=== PATIENT | male | born 1965 | race Caucasian/White ===

== ENCOUNTER 2020-09-28 08:19 | Emergency (ER) | payer BC, SELFPAY ==
[2020-09-28 08:23] VITALS: BP 155/88; PULSE 87; RESP 20; TEMP 36.6; O2SAT 97; BMI 35.2
--- NOTE | 2020-09-28 08:37 | XR_ITS ---
EXAMINATION: XR CHEST CLINICAL INFORMATION: Shortness of breath COMPARISON: None TECHNIQUE: Frontal view of the chest was obtained. FINDINGS: The cardiac and mediastinal contours are normal. The lung volumes are low. There are bilateral patchy infiltrates. Covid infection should be excluded. There is no pleural effusion or pneumothorax. There are degenerative changes of the spine. XR/XR chest 1V IMPRESSION: Low lung volumes and bilateral patchy infiltrates. Atypical pneumonia/Covid infection should be considered.
--- NOTE | 2020-09-28 08:39 | ECG_ITS ---
Test Reason : SSOB Blood Pressure : / mmHG Vent. Rate : 081 BPM Atrial Rate : 081 BPM P-R Int : 150 ms QRS Dur : 088 ms QT Int : 398 ms P-R-T Axes : 035 -15 015 degrees QTc Int : 462 ms Normal sinus rhythm Normal ECG When compared with ECG of 25-JUN-2017 10:30, Nonspecific T wave abnormality, improved in Inferior leads QT has lengthened Referred By: Dwight Boyd Electronically Signed By:NATALIA ELLISON MD
--- NOTE | 2020-09-28 08:40 | PC.NURSE ---
pt ambulated with the pulse dropped from 97% to 94%b on room air and hr increased from 88 to 108. work of breathing increased, respirations increased as well from 18-22. pt moved from castaneda into bed 3
[2020-09-28 08:49] VITALS: O2SAT 95
[2020-09-28 08:53] LABS: MANUAL DIFF FLAG NO
[2020-09-28 08:55] LABS: Basophils Percent Auto 0.3 % (0-2); Eosinophils Percent Auto 0.2 % (0-4); Hematocrit 47.1 % (42-52); Hemoglobin 16.6 g/dl (14.0-18.0); Imm Gran Abs Auto 0.02 X10*3/uL (0.00-0.03); Imm Gran Pct Auto 0.3 % (0.0-0.4); Lymphocytes Absolute Auto 1.8 X10*3/uL (1.2-4.9); Lymphocytes Percent Auto 29.4 % (20-40); Mean Corpuscular HGB Conc 35.2 g/dl (31.0-36.0); Mean Corpuscular Hemoglobin 31.6 pg (27.0-33.0); Mean Corpuscular Volume 89.7 fL (80-98); Mean Platelet Volume 10.1 fL (9.4-12.4); Monocytes Absolute Auto 0.7 X10*3/uL (0.1-1.2); Monocytes Percent Auto 11.9 % (2-11); Neutrophils Absolute Auto 3.5 X10*3/uL (2.0-8.3); Neutrophils Percent Auto 57.9 % (45-73); Platelet Count 213 X10*3/uL (160-400); Red Blood Count 5.25 X10*6/uL (4.60-5.80); Red Cell Distribution Width 12.4 % (11.0-16.0)
[2020-09-28 09:01] LABS: INTERNATIONAL NORM RATIO 1.2 (0.9-1.1); Prothrombin Time 13.9 SEC (10.8-13.0)
[2020-09-28 09:04] LABS: D Dimer 405 NG/ML
[2020-09-28 09:21] LABS: Alanine Aminotransferase 38 U/L (0-40); Albumin Level 4.2 g/dL (3.5-5.0); Alkaline Phosphatase 93 U/L (39-117); Anion Gap 15 (12-20); Aspartate Amino Transferase 37 U/L (5-37); Bilirubin Total 0.9 mg/dL (0.0-1.0); Blood Urea Nitrogen 10 mg/dL (9-16); Calcium 8.5 mg/dL (8.4-10.2); Carbon Dioxide 26 mmol/L (22-29); Chloride 101 mmol/L (96-108); Creatinine Clr Calc Pharmacy 117.5; Estimated Glomerular Filt Rate > 60; Glucose Random 118 mg/dL (60-115); Potassium 4.1 mmol/l (3.3-5.1); Sodium 138 mmol/L (135-145); Total Protein 6.8 g/dL (6.5-8.0)
[2020-09-28 09:28] LABS: Troponin-I High Sensitivity < 3.5 ng/L (<3.5-35.0)
--- NOTE | 2020-09-28 10:08 | CT_ITS ---
EXAMINATION: CT ANGIOGRAM OF THE CHEST WITH AND WITHOUT CONTRAST (CT PULMONARY ANGIOGRAM FOR PE) CLINICAL INFORMATION: Reason for Exam SOB/ elevated d dimer/ + COVID COMPARISON: None TECHNIQUE: Prior to contrast administration, noncontrast localization images were obtained. Subsequently, multidetector volumetric imaging was performed from the thoracic inlet to below the diaphragms following the administration of 65 mL Omnipaque 350 intravenous contrast. No contrast reaction reported Sagittal, coronal, and MIP oblique sagittal reformatted images were obtained on the CT workstation, uploaded to PACS, and reviewed. This CT examination was performed using dose optimization techniques as appropriate, variously including the following: *Automated exposure control *Adjustment of mA and/or kV according to patient size (this includes techniques or standardized protocols for targeted exams where dose is matched to indication/reason for exam; i.e. extremities or head) *Use of iterative reconstruction technique Total exam dose-length product 470 mGy-cm FINDINGS: QUALITY OF STUDY/CONTRAST BOLUS: Satisfactory. PULMONARY ARTERIES: No acute pulmonary embolus demonstrated. The main pulmonary artery is normal caliber. THORACIC AORTA: There is no evidence of a thoracic aortic dissection or aneurysm. No cardiac mass or thrombus demonstrated. No pericardial fluid. The coronary arteries are not well evaluated. LUNG: No abnormality of the trachea or mainstem bronchi. There are innumerable small groundglass and rounded opacities throughout both lungs. No cavity formation. PLEURA: There is no pleural fluid. There is no pneumothorax. MEDIASTINUM: There are scattered nonenlarged mediastinal lymph nodes. No suspicious abnormality of the upper or mid esophagus. Suspect a tiny sliding-type hiatal hernia. Large amount of fat deposited within the mediastinum. No evidence of septal bowing or right heart strain. CHEST WALL/AXILLA: No axillary or internal mammary lymphadenopathy. OSSEOUS STRUCTURES: No acute or suspicious osseous abnormality. UPPER ABDOMEN: No suspicious abnormality demonstrated. No reflux of contrast into the hepatic veins to suggest elevated right heart pressures. CT/CT angio chest PE protocol IMPRESSION: No acute pulmonary embolus. Numerous scattered bilateral groundglass infiltrates. This could reflect Covid pneumonia but is not entirely specific. VTE: negative
[2020-09-28 11:41] VITALS: BP 122/77; PULSE 77; RESP 20; O2SAT 96
--- NOTE | 2020-09-28 11:43 | PC.NURSE ---
pt back from ct, resting comfortably vs stable at this time, ns on the monitor, denies pain
[2020-09-28] MEDS: iohexoL 350 MG/ML 100 ML INFUS..BTL IV (12:03)
--- NOTE | 2020-09-28 13:02 | ED_ITS ---
HPI - URI/Sore Throat General Chief Complaint: Upper Respiratory Symptoms Stated Complaint: SOB Time Seen by Provider: 09/28/20 08:33 Source: patient Mode of arrival: ambulatory Limitations: no limitations History of Present Illness HPI Narrative: This is a 54-year-old male who presents ambulatory via triage who denies significant past medical history who presents with complaint of increased cough and associated shortness of breath ongoing for past several days states he was tested positive for COVID-19 about 1 week ago initially felt worse then he got better and now having cough and some shortness of breath with chills. He denies any chest pain at rest only with cough. Denies any lower extremity swelling. Denies any fever or GI symptoms. MD elicited complaint: cough and nasal congestion Onset (ago): day(s) Consistency: intermittent Severity: moderate Description of mucous: clear Able to tolerate fluids by mouth: Yes Exacerbating factors: other (Cough) Relieving factors: rest Context: sick contacts (Multiple members of his family including his and his brother tested positive COVID) Associated symptoms: rhinorrhea Treatments prior to arrival: none Related Data Previous Rx's Medication Instructions Recorded albuterol sulfate 1 inh INHALATION Q4-6H PRN #1 ea 09/28/20 azithromycin [Zithromax Z-Gabriel] 250 mg PO DAILY 5 Days #6 tab 09/28/20 prednisone 40 mg PO DAILY 5 Days #10 tab 09/28/20 Allergies Allergy/AdvReac Type Severity Reaction Status Date / Time No Known Allergies Allergy Verified 09/18/20 10:05 [No Known Allergies*] Review of Systems Review of Systems: Constitutional: No Weight loss, No Fever, + Chills, No Night Sweats, No Fatigue, No Malaise ENT/Mouth: No Hearing loss, No Ear Pain, No Nasal Congestion, No Sinus Pain, No Hoarseness, No sore throat, No Rhinorrhea, No Swallowing Difficulty Eyes: No Eye Pain, No Swelling, No Redness, No Foreign Body, No Discharge, No Vision Changes Cardiovascular: no Chest Pain, + SOB, No Dyspnea on Exertion, No Orthopnea, No Edema, No Palpitations Respiratory: + Cough, No Sputum, No Wheezing, No Dyspnea Gastrointestinal: No Nausea, No Vomiting, No Diarrhea, No Constipation, No abdominal Pain, No Hematochezia, No Melena Genitourinary: Flank Pain Musculoskeletal: No joint pain, + Myalgias, No Joint Swelling Skin: No Skin Lesions, No rash Neuro: No Weakness, No Numbness, No Paresthesias, No Loss of Consciousness, No Dizziness, No Headache Psych: No Social Issues Heme/Lymph: No Bruising, No Bleeding,No Lymphadenopathy Endocrine: No Polyuria, No Polydipsia, No Temperature Intolerance Yes all other systems are reviewed and are negative [facility] Past Medical History Surgical History History of total right knee replacement History of vasectomy Status post excision of lipoma Status post LASIK surgery Family History Family History Father Lung cancer Smoker Mother Diabetes Brother In good health Sister In good health Son In good health Brother Heart problem Brother Cancer Social History Social History Alcohol intake: current Alcohol intake frequency: a few times a month Smoking Status: Never smoker Use of substances other than those prescribed or required for medical reasons: No Advance Directives: No Advance Directives Information Provided: No Physical Exam Vital Signs: Vital Signs: Last Vital Signs Temp 97.8 F 09/28/20 08:23 Pulse 77 09/28/20 11:41 Resp 20 09/28/20 11:41 BP 122/77 09/28/20 11:41 Pulse Ox 96 09/28/20 11:41 Body Mass Index 35.2 Reviewed Const: General: cooperative and healthy appearing; No acute distress or intoxicated appearing Nutritional Appearance: average body habitus Orientation/consciousness: patient oriented x3 HENMT: Head: Yes normal to inspection Ears: hearing grossly normal bilaterally Eyes: General: appearance normal, both eyes and all related structures Visual Aaron: normal visual aaron by confrontation Neck: Neck: Yes normal visual inspection, No positive Brudzinski's sign, No positive Kernig's sign and No tender Thyroid: Thyroid normal Chest: Chest palpation & inspection: normal inspection of the chest Resp: Other: Mild dry bronchial cough Effort & Inspection: normal respiratory effort Auscultation: clear to auscultation bilaterally Cardio: Jugular venous distension: no JVD Rate: regular rate Rhythm: regular rhythm Heart sounds: S1 normal heart sound present and S2 normal heart sound present GI: Inspection: Yes normal to inspection Percussion: Yes normal to percussion Auscultation: normal bowel sounds : General: Yes no CVA tenderness Back/Spine/Pelvis: Back: no CVA tenderness Skin: General skin exam: no rashes or lesions noted Neuro: General: patient oriented x3 Extrem: General: Yes normal to inspection Course Course Course Narrative: Interview 54-year-old male who denies significant past medical history presenting with complaint of cough with associated shortness of breath in the setting of a positive COVID test 1 week ago and symptoms wax wean since. Upon arrival he is slightly tachypneic otherwise not tachycardic, pulse ox 98% on room air and heart rate 87. Will check labs including EKG chest x-ray and a D-dimer test. He is hemodynamically stable at this time. Does not requiring supplemental oxygen. He did do exertional ambulatory test his oxygen stayed at 98% on room air and not tachycardic. Reevaluation(s) Reevaluation #1: Labs show slightly elevated D-dimer otherwise unremarkable labs. Troponin negative. He has remained stable. Given positive COVID test and his elevated D-dimer possibility does exist of pulmonary embolism will get CT of the chest rule out PE. Reevaluation #2: CT of the chest shows No acute pulmonary embolus. Numerous scattered bilateral groundglass infiltrates. This could reflect Covid pneumonia but is not entirely specific. He remained stable. Will discharge short course prednisone, inhaler and supportive care. Clear return follow-up instructions provided. MDM - URI/Sore Throat Medical Records Attestation: I reviewed the patient's medical records. Lab Data Attestation: I reviewed the patient's lab results. Result diagrams: 09/28/20 08:44 09/28/20 08:44 Labs: Lab Results 09/28/20 09/28/20 09/28/20 Range/Units 08:44 08:44 08:44 WBC 6.0 (4.8-10.8) X10*3/uL RBC 5.25 (4.60-5.80) X10*6/uL Hgb 16.6 (14.0-18.0) g/dl Hct 47.1 (42-52) % MCV 89.7 (80-98) fL MCH 31.6 (27.0-33.0) pg MCHC 35.2 (31.0-36.0) g/dl RDW 12.4 (11.0-16.0) % Plt Count 213 (160-400) X10*3/uL MPV 10.1 (9.4-12.4) fL Immature Gran % (Auto) 0.3 (0.0-0.4) % Neut % (Auto) 57.9 (45-73) % Lymph % (Auto) 29.4 (20-40) % [place] % (Auto) 11.9 H (2-11) % Eos % (Auto) 0.2 (0-4) % Baso % (Auto) 0.3 (0-2) % Lymph # (Auto) 1.8 (1.2-4.9) X10*3/uL [place] # (Auto) 0.7 (0.1-1.2) X10*3/uL Eos # (Auto) 0.0 (0.0-0.4) X10*3/uL Baso # (Auto) 0.0 (0.0-0.2) X10*3/uL Abs Immat Gran (auto) 0.02 (0.00-0.03) X10*3/uL Absolute Neuts (auto) 3.5 (2.0-8.3) X10*3/uL Absolute Nucleated RBC 0.000 (0.0-0.012) X10*3/uL Nucleated RBC % (auto) 0.0 (0.0-0.2) /100WBC PT (10.8-13.0) SEC INR (0.9-1.1) APTT (24.1-38.0) SEC D-Dimer NG/ML Sodium 138 (135-145) mmol/L Potassium 4.1 (3.3-5.1) mmol/l Chloride 101 (96-108) mmol/L Carbon Dioxide 26 (22-29) mmol/L Anion Gap 15 (12-20) BUN 10 (9-16) mg/dL Creatinine 0.93 (0.5-1.4) mg/dL Estim Creat Clear Calc 117.5 Estimated GFR > 60 Random Glucose 118 H (60-115) mg/dL Calcium 8.5 (8.4-10.2) mg/dL Total Bilirubin 0.9 (0.0-1.0) mg/dL AST 37 (5-37) U/L ALT 38 (0-40) U/L Alkaline Phosphatase 93 (39-117) U/L Troponin I High Sens < 3.5 (<3.5-35.0) ng/L Total Protein 6.8 (6.5-8.0) g/dL Albumin 4.2 (3.5-5.0) g/dL 09/28/20 Range/Units 08:44 WBC (4.8-10.8) X10*3/uL RBC (4.60-5.80) X10*6/uL Hgb (14.0-18.0) g/dl Hct (42-52) % MCV (80-98) fL MCH (27.0-33.0) pg MCHC (31.0-36.0) g/dl RDW (11.0-16.0) % Plt Count (160-400) X10*3/uL MPV (9.4-12.4) fL Immature Gran % (Auto) (0.0-0.4) % Neut % (Auto) (45-73) % Lymph % (Auto) (20-40) % [place] % (Auto) (2-11) % Eos % (Auto) (0-4) % Baso % (Auto) (0-2) % Lymph # (Auto) (1.2-4.9) X10*3/uL [place] # (Auto) (0.1-1.2) X10*3/uL Eos # (Auto) (0.0-0.4) X10*3/uL Baso # (Auto) (0.0-0.2) X10*3/uL Abs Immat Gran (auto) (0.00-0.03) X10*3/uL Absolute Neuts (auto) (2.0-8.3) X10*3/uL Absolute Nucleated RBC (0.0-0.012) X10*3/uL Nucleated RBC % (auto) (0.0-0.2) /100WBC PT 13.9 H (10.8-13.0) SEC INR 1.2 H (0.9-1.1) APTT 35.0 (24.1-38.0) SEC D-Dimer 405 NG/ML Sodium (135-145) mmol/L Potassium (3.3-5.1) mmol/l Chloride (96-108) mmol/L Carbon Dioxide (22-29) mmol/L Anion Gap (12-20) BUN (9-16) mg/dL Creatinine (0.5-1.4) mg/dL Estim Creat Clear Calc Estimated GFR Random Glucose (60-115) mg/dL Calcium (8.4-10.2) mg/dL Total Bilirubin (0.0-1.0) mg/dL AST (5-37) U/L ALT (0-40) U/L Alkaline Phosphatase (39-117) U/L Troponin I High Sens (<3.5-35.0) ng/L Total Protein (6.5-8.0) g/dL Albumin (3.5-5.0) g/dL Imaging Data Chest x-ray: Radiologist's impression: [address] [address] XRay Report Signed Patient: Jayesh Bruner MMR#: [id number] : 1965Acct:[id number] Age/Sex: 54 / MADM Date: 09/28/20 Loc: .ED Attending Dr: Ordering Physician: Dwight Boyd NP Date of Service: 09/28/20 Procedure(s): XR chest 1V Accession Number(s): [id number] cc: Dwight Boyd [employer]~ EXAMINATION: XR CHEST CLINICAL INFORMATION: Shortness of breath COMPARISON: None TECHNIQUE: Frontal view of the chest was obtained. FINDINGS: The cardiac and mediastinal contours are normal. The lung volumes are low. There are bilateral patchy infiltrates. Covid infection should be excluded. There is no pleural effusion or pneumothorax. There are degenerative changes of the spine. XR/XR chest 1V IMPRESSION: Low lung volumes and bilateral patchy infiltrates. Atypical pneumonia/Covid infection should be considered. Dictated By:NANNETTE JORDAN MD Signed By:<Electronically signed by NANNETTE JORDAN MD in [place]>09/28/2013 DD/ 0837 TD/TT: Job Coaching: [facility] [place] Chest CT PE protocol: Radiologist's impression: [address] [address] [address] Scan Report Signed Patient: Jayesh Bruner [facility]#: [id number] : 1965Acct:[id number] Age/Sex: 54 / MADM Date: 09/28/20 Loc: HO.ED Attending Dr: Ordering Physician: Dwight Boyd NP Date of Service: 09/28/20 Procedure(s): CT angio chest PE protocol Accession Number(s): [id number] cc: Dwight Boyd NP~ EXAMINATION: CT ANGIOGRAM OF THE CHEST WITH AND WITHOUT CONTRAST (CT PULMONARY ANGIOGRAM FOR PE) CLINICAL INFORMATION: Reason for Exam SOB/ elevated d dimer/ + COVID COMPARISON: None TECHNIQUE: Prior to contrast administration, noncontrast localization images were obtained. Subsequently, multidetector volumetric imaging was performed from the thoracic inlet to below the diaphragms following the administration of 65 mL Omnipaque 350 intravenous contrast. No contrast reaction reported Sagittal, coronal, and MIP oblique sagittal reformatted images were obtained on the CT workstation, uploaded to PACS, and reviewed. This CT examination was performed using dose optimization techniques as appropriate, variously including the following: *Automated exposure control *Adjustment of mA and/or kV according to patient size (this includes techniques or standardized protocols for targeted exams where dose is matched to indication/reason for exam; i.e. extremities or head) *Use of iterative reconstruction technique Total exam dose-length product 470 mGy-cm FINDINGS: QUALITY OF STUDY/CONTRAST BOLUS: Satisfactory. PULMONARY ARTERIES: No acute pulmonary embolus demonstrated. The main pulmonary artery is normal caliber. THORACIC AORTA: There is no evidence of a thoracic aortic dissection or aneurysm. No cardiac mass or thrombus demonstrated. No pericardial fluid. The coronary arteries are not well evaluated. LUNG: No abnormality of the trachea or mainstem bronchi. There are innumerable small groundglass and rounded opacities throughout both lungs. No cavity formation. PLEURA: There is no pleural fluid. There is no pneumothorax. MEDIASTINUM: There are scattered nonenlarged mediastinal lymph nodes. No suspicious abnormality of the upper or mid esophagus. Suspect a tiny sliding-type hiatal hernia. Large amount of fat deposited within the mediastinum. No evidence of septal bowing or right heart strain. CHEST WALL/AXILLA: No axillary or internal mammary lymphadenopathy. OSSEOUS STRUCTURES: No acute or suspicious osseous abnormality. UPPER ABDOMEN: No suspicious abnormality demonstrated. No reflux of contrast into the hepatic veins to suggest elevated right heart pressures. CT/CT angio chest PE protocol IMPRESSION: No acute pulmonary embolus. Numerous scattered bilateral groundglass infiltrates. This could reflect Covid pneumonia but is not entirely specific. VTE: negative Dictated By:VINNIE VÁZQUEZ MD Signed By:<Electronically signed by VINNIE VÁZQUEZ MD in [place]>09/28/20 1215 DD/ 1008 TD/TT: Job Coaching: JOHNNY ECG Data Interpretation: Normal sinus rhythm Normal ECG When compared with ECG of 25-JUN-2017 10:30, Nonspecific T wave abnormality, improved in Inferior leads QT has lengthened Discharge Plan Discharge Clinical Impression: COVID-19, Chest pain on breathing Patient Disposition: Home, Self-Care Instructions: Chest Pain (ED), COVID-19 (Coronavirus Disease 2019) (ED) Additional Instructions: Drink plenty of fluids Quarantine yourself for at least 2 weeks and at least 3 days symptom free Take medication prescribed Return if any concerns or worsening symptoms Otherwise doing phone visit with her primary care doctor for fall check in about 7 days Prescriptions: New azithromycin [Zithromax Z-Gabriel] 250 mg tablet 250 mg PO DAILY 5 Days Qty: 6 RF: 0 prednisone 20 mg tablet 40 mg PO DAILY 5 Days Qty: 10 RF: 0 albuterol sulfate 90 mcg/actuation aero powdr breath act w/sensor 1 inh inhalation Q4-6H PRN (Reason: shortness of breath or wheezing) Qty: 1 RF: 0 Referrals: Zheng Fernandez PA-C [Primary Care Provider] - 1 week (Phone visit) Discharge Date/Time: 09/28/20 14:14
== END 2020-09-28 14:14 | disposition home or self-care (01) ==
PROVIDERS: Nurse Practitioner Primary Care; Emergency Provider Emergency Medicine Emergency Medical Services; PCP Physician Assistant
DX: U07.1 COVID-19 (principal); R06.02 Shortness of breath; J34.89 Other specified disorders of nose and nasal sinuses
CPT/HCPCS: 36415; 71045; 71275; 80053; 84484; 85025; 85379; 85610; 85730; 93005; 99284; 99285; Q9967

== ENCOUNTER 2020-10-10 11:42 | Outpatient (REF) | payer BC, SELFPAY ==
--- NOTE | 2020-10-10 11:49 | XR_ITS ---
EXAMINATION: XR CHEST CLINICAL INFORMATION: Abnormal finding on lung-field COMPARISON: 09/28/2020 TECHNIQUE: 2 views of the chest were obtained. FINDINGS: The lungs are well expanded. There is no focal consolidation, edema, or effusion. No pneumothorax. The cardiomediastinal silhouette is within normal limits. No acute osseous abnormality. XR/XR chest 2V IMPRESSION: Clear lungs.
== END 2020-10-10 11:43 | disposition home or self-care (01) ==
LOC: HO.XRAY 11:42
PROVIDERS: PCP Physician Assistant; Visit Provider Physician Assistant
DX: R91.8 Other nonspecific abnormal finding of lung field (principal)
CPT/HCPCS: 71046

== ENCOUNTER 2021-03-18 10:34 | Outpatient (REF) | payer BC, SELFPAY ==
[2021-03-18 12:17] LABS: Estimated Average Glucose 108 mg/dL; Hemoglobin A1c % 5.4 %
[2021-03-18 12:19] LABS: Alanine Aminotransferase 22 U/L (0-40); Albumin Level 4.1 g/dL (3.5-5.0); Alkaline Phosphatase 85 U/L (39-117); Anion Gap 13 (12-20); Aspartate Amino Transferase 19 U/L (5-37); Bilirubin Total 0.9 mg/dL (0.0-1.0); Blood Urea Nitrogen 11 mg/dL (9-16); Calcium 9.3 mg/dL (8.4-10.2); Carbon Dioxide 23 mmol/L (22-29); Chloride 108 mmol/L (96-108); Cholesterol 213 mg/dL; Estimated Glomerular Filt Rate > 60; Glucose Fasting 102 mg/dL (60-99); HDL Cholesterol 41 mg/dL; LDL Cholesterol Calculated 131 mg/dl; Potassium 4.4 mmol/L (3.3-5.1); Sodium 140 mmol/L (135-145); Total Protein 6.7 g/dL (6.5-8.0); Triglycerides 207 mg/dL
[2021-03-18 12:52] LABS: Prostate Specific Antigen Scr 1.32 ng/mL (<0.05-4.0); TSH reflex Free T4 1.38 uIU/mL (0.32-4.0)
== END 2021-03-18 10:35 | disposition home or self-care (01) ==
LOC: HO.LAB 10:34
PROVIDERS: PCP Physician Assistant; Visit Provider Physician Assistant
DX: Z12.5 Encounter for screening for malignant neoplasm of prostate (principal); Z13.29 Encounter for screening for other suspected endocrine disorder; Z13.220 Encounter for screening for lipoid disorders
CPT/HCPCS: 36415; 80053; 80061; 83036; 84153; 84443

== ENCOUNTER 2021-11-19 12:30 | Outpatient (REF) | payer BC, SELFPAY ==
[2021-11-19 13:14] LABS: Hematocrit 48.6 % (42.0-52.0); Hemoglobin 16.5 g/dl (14.0-18.0); Mean Corpuscular Hemoglobin 31.8 pg (27.0-33.0); Mean Corpuscular Volume 93.6 fL (80.0-98.0); Platelet Count 244 X10*3/uL (160-400); Red Blood Count 5.19 X10*6/uL (4.60-5.80); Red Cell Distribution Width 13.2 % (11.0-16.0); White Blood Count 9.8 X10*3/uL (4.8-10.8)
[2021-11-19 13:40] LABS: Alanine Aminotransferase 22 U/L (0-40); Albumin Level 4.2 g/dL (3.5-5.0); Alkaline Phosphatase 91 U/L (39-117); Anion Gap 13 (12-20); Aspartate Amino Transferase 19 U/L (5-37); Bilirubin Total 0.8 mg/dL (0.0-1.0); Blood Urea Nitrogen 19 mg/dL (9-16); Calcium 9.2 mg/dL (8.4-10.2); Carbon Dioxide 26 mmol/L (22-29); Chloride 107 mmol/L (96-108); Cholesterol 278 mg/dL; Estimated Glomerular Filt Rate > 60; Glucose Fasting 94 mg/dL (60-99); HDL Cholesterol 49 mg/dL; LDL Cholesterol Calculated 198 mg/dl; Potassium 4.5 mmol/L (3.3-5.1); Sodium 141 mmol/L (135-145); Total Protein 6.7 g/dL (6.5-8.0); Triglycerides 158 mg/dL
[2021-11-19 14:07] LABS: Prostate Specific Antigen Scr 1.57 ng/mL (<0.05-4.0); TSH reflex Free T4 2.25 uIU/mL (0.32-4.0)
[2021-11-19 14:08] LABS: Estimated Average Glucose 105 mg/dL; Hemoglobin A1c % 5.3 %
== END 2021-11-19 12:31 | disposition home or self-care (01) ==
LOC: HO.LAB 12:30
PROVIDERS: PCP Physician Assistant; Visit Provider Physician Assistant
DX: Z13.1 Encounter for screening for diabetes mellitus (principal); Z13.29 Encounter for screening for other suspected endocrine disorder; Z13.220 Encounter for screening for lipoid disorders; Z12.5 Encounter for screening for malignant neoplasm of prostate
CPT/HCPCS: 36415; 80053; 80061; 83036; 84153; 84443; 85027

== ENCOUNTER 2022-11-26 11:25 | Outpatient (REF) | payer BC, SELFPAY ==
[2022-11-26 12:14] LABS: Hematocrit 47.9 % (42.0-52.0); Hemoglobin 16.3 g/dl (14.0-18.0); Mean Corpuscular Hemoglobin 31.4 pg (27.0-33.0); Mean Corpuscular Volume 92.3 fL (80.0-98.0); Mean Platelet Volume 10.1 fL (9.4-12.4); Platelet Count 235 X10*3/uL (160-400); Red Blood Count 5.19 X10*6/uL (4.60-5.80); Red Cell Distribution Width 13.2 % (11.0-16.0); White Blood Count 6.5 X10*3/uL (4.8-10.8)
[2022-11-26 13:13] LABS: Alanine Aminotransferase 30 U/L (0-40); Albumin Level 4.4 g/dL (3.5-5.0); Alkaline Phosphatase 99 U/L (39-117); Anion Gap 12 (12-20); Aspartate Amino Transferase 21 U/L (5-37); Bilirubin Total 1.2 mg/dL (0.0-1.0); Blood Urea Nitrogen 16 mg/dL (9-16); Calcium 9.2 mg/dL (8.4-10.2); Carbon Dioxide 28 mmol/L (22-29); Chloride 105 mmol/L (96-108); Cholesterol 255 mg/dL; Estimated Glomerular Filt Rate > 60; Glucose Fasting 111 mg/dL (60-99); HDL Cholesterol 41 mg/dL; LDL Cholesterol Calculated 190 mg/dl; Potassium 5.1 mmol/L (3.3-5.1); Sodium 140 mmol/L (135-145); Total Protein 6.7 g/dL (6.5-8.0); Triglycerides 122 mg/dL
[2022-11-26 13:22] LABS: Prostate Specific Antigen Scr 1.73 ng/mL (<0.05-4.0); TSH reflex Free T4 1.48 uIU/mL (0.32-4.0)
== END 2022-11-26 11:26 | disposition home or self-care (01) ==
LOC: HO.LAB 11:25
PROVIDERS: PCP Physician Assistant; Visit Provider Physician Assistant
DX: Z13.29 Encounter for screening for other suspected endocrine disorder (principal); Z12.5 Encounter for screening for malignant neoplasm of prostate; E78.5 Hyperlipidemia, unspecified
CPT/HCPCS: 36415; 80053; 80061; 84153; 84443; 85027

== ENCOUNTER 2022-11-27 09:21 | Outpatient (REF) | payer BC, SELFPAY ==
--- NOTE | ~2022-11-27 | XR_ITS ---
EXAMINATION: XR ABDOMEN KUB CLINICAL INDICATION: Mixed hyperlipidemia. COMPARISON: None available. TECHNIQUE: 3-D supine views of the abdomen and pelvis are submitted. FINDINGS: The bowel gas pattern is normal with no evidence of ileus or obstruction. There is a moderate stool burden. There is no free intraperitoneal air. No unusual soft tissue calcifications are noted. There are small pelvic phleboliths. No acute osseous abnormality is seen. There is a moderate lumbar dextroscoliosis. XR/XR KUB IMPRESSION: There is a moderate stool burden. No bowel obstruction or free intraperitoneal air is seen.
== END 2022-11-27 09:22 | disposition home or self-care (01) ==
LOC: HO.XRAY 09:21
PROVIDERS: PCP Physician Assistant; Visit Provider Physician Assistant
DX: E78.2 Mixed hyperlipidemia (principal)
CPT/HCPCS: 74018

== ENCOUNTER 2022-12-03 11:26 | Outpatient (REF) | payer BC, SELFPAY ==
--- NOTE | ~2022-12-03 | US_ITS ---
EXAMINATION: US RETROPERITONEAL LIMITED (RENAL ONLY) CLINICAL INFORMATION: Intermittent right flank pain. Family history of renal cancer. COMPARISON: X-ray abdomen KUB 11/27/2022. Renal ultrasound 03/13/2019. TECHNIQUE: Real-time imaging of the right kidney. FINDINGS: RIGHT KIDNEY: 12.7 x 6.0 x 5.7 cm (SAG x AP x TRV). The kidney is normal in size, contour, and echogenicity. Renal cortical thickness is normal. No calculi or focal parenchymal lesions. No hydronephrosis. US/US renal RT IMPRESSION: No abnormality is seen in the right kidney.
== END 2022-12-03 11:27 | disposition home or self-care (01) ==
LOC: HO.HMGCX 11:26
PROVIDERS: PCP Physician Assistant; Visit Provider Physician Assistant
DX: R10.9 Unspecified abdominal pain (principal); Z80.51 Family history of malignant neoplasm of kidney
CPT/HCPCS: 76775

== ENCOUNTER 2023-10-28 13:25 | Outpatient (AMB) | payer OTHER, SELFPAY ==
--- NOTE | 2023-10-28 13:31 | MHC.PC.OV ---
Vital Signs 10/28/23 13:32 Height 6 ft Weight 273 lb BMI 37.0 BP 128/70 Blood Pressure Location Lt brachial Position Sitting Pulse 91 Pulse Source Pulse Oximeter Pulse Oximetry (%) 95 Oxygen Delivery Method Room Air Intake Visit Reasons: Physical Allergies No Known Allergies [No Known Allergies*] Allergy (Verified 10/28/23 13:43) Medication List - Last Reconciled 10/28/23 by Zheng Fernandez PA-C pravastatin 20 mg PO DAILY 90 days Tobacco use date assessed: 10/28/23 Dental Screening Dental Screen Date: 10/28/23 Did you have a dental visit in the last 12 months?: No Did you have a dental problem in the last 6 months where you did not have access to dental care?: No HPI Physical HPI Details Patient is a 57-year-old male here today for annual physical.? Patient has a past medical history significant for obesity. Otherwise healthy. Concerns--> reports intermittent right groin/scrotal swelling ever since having a vasectomy 25 years ago. He reports during sex it does cause him some discomfort and decreased arousal.. He denies any issues with urination or ejaculation. Obesity:? Patient does understand his BMI is over 30 and has been working on being more physically active and a doctor in a better eating habits to reduce his weight. .. Hyperlipidemia: Most recent lipid panel showing elevated total cholesterol and LDL. Patient working on lifestyle modifications to reduce his cholesterol. He reports side effect of life cramping with statin medication thus has not been regularly taking the medication. ?? Colononoscopy 2015- Dr. Orozco, repeat 10 years . .. Vaccine: UTD with? FLu, Needs Tdap, , UTD with COVID, declined flu vaccine. [facility] Surgical History History of total right knee replacement Status post LASIK surgery History of vasectomy Status post excision of lipoma Family History (Updated 10/28/23 @ 13:48 by Zheng Fernandez PA-C) Father Lung cancer Smoker Mother Diabetes Lung cancer Brother In good health Renal carcinoma Hemochromatosis Sister In good health Hemochromatosis Son In good health Brother Heart problem Brother Cancer Social History (Updated 10/28/23 @ 13:49 by Zheng Fernandez PA-C) Housing: House Alcohol intake: current Alcohol intake frequency: a few times a month Alcohol type: beer Patient Tobacco Use Status: Never used Tobacco e-Cigarette/Vaping Use: Never Used Second Hand Smoke Exposure: No service: No Current occupational status: employed 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 1. Little interest or pleasure in doing things: not at all 2. Feeling down, depressed, or hopeless: not at all 3. Trouble falling or staying asleep, or sleeping too much: not at all 4. Feeling tired or having little energy: not at all 5. Poor appetite or overeating: not at all 6. Feeling bad about yourself - or that you are a failure or have let yourself or your family down: not at all 7. Trouble concentrating on things, such as reading the newspaper or watching television: not at all 8. Moving or speaking so slowly that other people could have noticed. Or the opposite - being so fidgety or restless that you have been moving around a lot more than usual: not at all 9. Thoughts that you would be better off or of hurting yourself in some way: not at all Total score: 0 Depression Screening Interpretation: Negative Depression Screening Done: Yes Source: Developed by Drs. Alonzo Ayoub, Denice Lay, Cuhcho Patiño and colleagues, with an educational gurmeet from [employer]. Thrive Questionnaire Date Thrive assessed: 11/19/21 AUDIT C Alcohol Use Questionnaire (AUDIT-C) 1. How often do you have a drink containing alcohol?: 2-4 times a month 2. How many drinks containing alcohol do you have on a typical day when you are drinking?: 3 or 4 3. How often do you have six or more drinks on one occasion?: Never Total Score: 3 LAURA-7 AMB Questionnaire LAURA-7 Date LAURA - 7 assessed: 10/28/23 Feeling nervous, anxious, or on edge: 0 = Not at all Not being able to stop or control worryin = Not at all Worrying too much about different things: 0 = Not at all Trouble relaxin = Not at all Being so restless that it is hard to sit still: 0 = Not at all Becoming easily annoyed or irritable: 0 = Not at all Feeling afraid as if something awful might happen: 0 = Not at all Total LAURA-7 score (0-4 normal; 5-9 mild; 10-14 moderate; 15-21 severe): 0 Source: Developed by Drs. Alonzo Ayoub, Denice Lay, Chucho Patiño and colleagues, with an educational gurmeet from [employer]. Review of Systems Const Denies body aches, Denies chills, Denies excessive sweating, Denies fatigue, Denies fever(s) and Denies headache(s) Eyes Denies blurry vision ENT Denies dysphagia, Denies vertigo, Denies dizziness, Denies headache(s), Denies hearing loss and Denies tinnitus Card Denies chest pain, Denies chest pain with activity, Denies syncope, Denies irregular heart rhythm and Denies dyspnea Resp Denies chest congestion, Denies cough, Denies hemoptysis, Denies dyspnea and Denies wheezing GI Denies abdominal pain, Denies melena, Denies hematochezia, Denies coffee ground emesis, Denies dysphagia, Denies diarrhea, Denies nausea and Denies vomiting Denies difficulty urinating, Denies dysuria, Denies urinary frequency, Denies urinary hesitancy and Denies urinary urgency Musc Denies arthralgias, Denies limited range of motion, Denies muscle cramps and Denies muscle weakness Skin/Breast Denies rash and Denies skin ulcer Neuro Denies Abnormal speech present, Denies confusion, Denies vertigo, Denies dizziness, Denies syncope, Denies headache(s), Denies memory loss and Denies seizure-like activity Psych Denies anxiety, Denies confusion, Denies depression, Denies memory loss, Denies panic attacks and Denies paranoia Endo Denies excessive sweating, Denies fatigue, Denies flushing, Denies polydipsia and Denies polyuria Aller/Immun Denies wheezing Physical exam (Primary Care) Vital Signs: Last Vital Signs Pulse 91 10/28/23 13:32 BP 128/70 10/28/23 13:32 Pulse Ox 95 10/28/23 13:32 Oxygen Delivery Method Room Air 10/28/23 13:32 BMI result Body Mass Index 37.0 BMI Assessment/Plan discussion: High Tobacco/Smoking Status: Tobacco use Status Tobacco use date assessed 10/28/23 10/28/23 13:37 Patient Tobacco Use Status Never used Tobacco 10/28/23 13:49 e-Cigarette/Vaping Use Never Used 10/28/23 13:49 PHQ-9: PHQ-9 Score PHQ-9: Total score 0 10/28/23 14:28 Depression Screening Interpretation: Negative Thrive Assessment: Date of Thrive Assessment Date Thrive assessed 11/19/21 10/28/23 13:37 Const General: cooperative, comfortable, no acute distress, alert and awake; No confusion Orientation/consciousness: oriented to person, oriented to place, patient oriented x3 and No confusion HENMT Head: Yes normocephalic Ears: external ears normal and TM's normal bilaterally Face and sinus: No sinus tenderness Mouth: Normal oral and palatal mucosa present and tongue normal Teeth and gingiva: dentition normal and gingiva normal Throat: Yes posterior oropharynx normal, Yes tonsils normal and Yes uvula midline Eyes Conjunctivae: conjunctivae normal Sclerae: sclerae normal Pupils: Equal, round and reactive pupils present EOM: EOMs intact bilaterally Direct Ophthalmoscopy: No no photophobia Neck Neck: Yes no lymphadenopathy, No tender and Yes no JVD Thyroid: Thyroid normal Carotids: no bruits Chest Chest palpation & inspection: no tenderness Resp Effort & Inspection: normal respiratory effort, no audible wheezes, not labored and no stridor Auscultation: no crackles, no rales, no rhonchi and no wheezes Cardio Jugular venous distension: no JVD Rate: regular rate, not bradycardic and not tachycardic Rhythm: regular rhythm Bruits: no carotid bruits Peripheral pulses: Peripheral pulses 2+ throughout GI Inspection: Yes normal to inspection, No abdominal wall ecchymosis and No visible herniation Palpation (GI): Soft to palpation, nontender, no guarding, not rigid and No hepatosplenomegaly present Auscultation: normoactive bowel sounds General: Yes no CVA tenderness Back/Spine/Pelvis Back: no CVA tenderness and No back tenderness Cervical Spine: cervical ROM normal Thoracic/Lumbar Spine: thoracic and lumbar spine normal to inspection, straight leg raise negative bilaterally, No thoraco-lumbar ROM limited and No lumbar spinal tenderness Skin Lesions: no lesions Rashes: no rashes Wounds: no wounds Neuro General: oriented to person, oriented to place, patient oriented x3, CN's II-XI intact bilaterally and No confusion Cranial nerves: Yes Equal, round and reactive pupils present and Yes Normal accommodation reflex present Cognition (Neuro): normal cognition Speech: No Abnormal speech present Gait exam (Neuro): Normal gait present Motor exam (neuro): 5/5 motor strength present throughout Extrem Right upper extremity: full ROM; no cyanosis Left upper extremity: full ROM; no cyanosis Right lower extremity: no edema Left lower extremity: no edema Psych Appearance: grossly normal Mental Status: mental status grossly normal Affect: normal affect Attitude: cooperative Thought process: Normal thought process present Immunizations Boostrix Tdap 2.5 Lf unit-8 mcg-5 Lf/0.5 mL intramuscular syringe Performing Provider: Zheng Fernandez PA-C Performing Location: [facility] Administered by: JAEL Mayo on 10/28/23 14:44 Dose Route Admin Location Dispensed Lot Number Expiration Date NDC Manager Acquisition 0.5 mL IM Left Deltoid 0.5 mL [id number] 01/06/26 [id number] [employer] VIS Given Date VIS Provided VIS Publication Date 10/28/23 Single Vaccine 21 Eligibility Eligibility Date Funding Source Not [facility] Eligible 10/28/23 Private Assessment and Plan Assessment & Plan (1) Annual physical exam: Code(s): Z00.00 - Encounter for general adult medical examination without abnormal findings (2) Obese: Code(s): E66.9 - Obesity, unspecified Qualifiers: Obesity type: due to excess calories Obesity classification: adult class 2 (BMI 35 - 39.9) Serious obesity comorbidity presence: without serious comorbidity Body mass index: BMI 39.0-39.9 Qualified Code(s): E66.09 - Other obesity due to excess calories; Z68.39 - Body mass index [BMI] 39.0-39.9, adult Plan: Patient does understand his BMI is over 30 and has been working on lifestyle modifications to reduce his weight. (3) HLD (hyperlipidemia): Code(s): E78.5 - Hyperlipidemia, unspecified Qualifiers: Hyperlipidemia type: mixed hyperlipidemia Qualified Code(s): E78.2 - Mixed hyperlipidemia Plan: Patient's most recent lipid panel showing very elevated total cholesterol and LDL. He has not been regularly taking statin medication as it causes him some leg cramping. He would like to implement lifestyle modifications and dietary modifications more aggressively. . Advised to get repeat fasting lipid panel done to evaluate LDL and if above 190 will commence statin therapy (4) Screening for diabetes mellitus: Code(s): Z13.1 - Encounter for screening for diabetes mellitus (5) Hydrocele: Code(s): N43.3 - Hydrocele, unspecified Qualifiers: Hydrocele type: unspecified Qualified Code(s): N43.3 - Hydrocele, unspecified Plan: Patient's signs and symptoms are concerning for hydrocele that maybe bothersome to him. Will send for scrotal ultrasound. Also would like to see urologist for possible intervention. (6) Family history of hemochromatosis: Code(s): Z83.49 - Family history of other endocrine, nutritional and metabolic diseases Plan: Has a family history of hemochromatosis. Would like his iron checked Orders: Orders Comprehensive [place]. Panel Fast Today Z13.1 - Encounter for screening for diabetes mellitus Lipid Panel Today E78.2 - Mixed hyperlipidemia US scrotum Today N43.3 - Hydrocele, unspecified, N50.89 - Other specified disorders of the male genital organs IRON PROFILE Today D50.9 - Iron deficiency anemia, unspecified, Z83.49 - Family history of other endocrine, nutritional and metabolic diseases Ferritin Today Z83.49 - Family history of other endocrine, nutritional and metabolic diseases Complete Blood Count no Diff Today E78.2 - Mixed hyperlipidemia Prostate Specific Antigen Scr Today N43.3 - Hydrocele, unspecified, Z12.5 - Encounter for screening for malignant neoplasm of prostate TDaP Immunization Today Z23 - Encounter for immunization Referrals Urology Referral N43.3 - Hydrocele, unspecified Coding Level of Care Code Est Pt Prev Care 40-64y(37656) Diagnoses Annual physical exam Z00.00 Class 2 obesity due to excess calories without serious comorbidity with body mass index (BMI) of 39.0 to 39.9 in adult E66.09; Z68.39 Obesity type: due to excess calories Obesity classification: adult class 2 (BMI 35 - 39.9) Serious obesity comorbidity presence: without serious comorbidity Body mass index: BMI 39.0-39.9 Mixed hyperlipidemia E78.2 Hyperlipidemia type: mixed hyperlipidemia Screening for diabetes mellitus Z13.1 Hydrocele, unspecified hydrocele type N43.3 Hydrocele type: unspecified Family history of hemochromatosis Z83.49
[2023-10-28 13:32] VITALS: BP 128/70; PULSE 91; O2SAT 95; BMI 37.0
== END 2023-10-28 14:09 | disposition home or self-care (01) ==
PROVIDERS: PCP Physician Assistant; Visit Provider Physician Assistant
DX: Z00.00 Encounter for general adult medical examination without abnormal findings (principal); E66.09 Other obesity due to excess calories; Z68.39 Body mass index [BMI] 39.0-39.9, adult; Z23 Encounter for immunization; E78.2 Mixed hyperlipidemia; N43.3 Hydrocele, unspecified; Z13.1 Encounter for screening for diabetes mellitus; Z83.49 Family history of other endocrine, nutritional and metabolic diseases
CPT/HCPCS: 90471; 90715; 99396

== ENCOUNTER 2023-10-28 14:13 | Outpatient (REF) | payer OTHER, SELFPAY ==
[2023-10-28 14:57] LABS: Hematocrit 46.7 % (42.0-52.0); Hemoglobin 16.3 g/dl (14.0-18.0); Mean Corpuscular HGB Conc 34.9 g/dl (31.0-36.0); Mean Corpuscular Hemoglobin 32.1 pg (27.0-33.0); Mean Corpuscular Volume 92.1 fL (80.0-98.0); Mean Platelet Volume 10.2 fL (9.4-12.4); Platelet Count 244 X10*3/uL (160-400); Red Blood Count 5.07 X10*6/uL (4.60-5.80); Red Cell Distribution Width 13.1 % (11.0-16.0); White Blood Count 7.2 X10*3/uL (4.8-10.8)
[2023-10-28 16:18] LABS: Alanine Aminotransferase 24 U/L (0-40); Albumin Level 4.4 g/dL (3.5-5.0); Alkaline Phosphatase 101 U/L (39-117); Anion Gap 11 (12-20); Aspartate Amino Transferase 20 U/L (5-37); Bilirubin Total 0.6 mg/dL (0.0-1.0); Blood Urea Nitrogen 10 mg/dL (9-16); Calcium 9.8 mg/dL (8.4-10.2); Carbon Dioxide 28 mmol/L (22-29); Chloride 109 mmol/L (96-108); Cholesterol 229 mg/dL (<200); Estimated Glomerular Filt Rate > 60; Glucose Fasting 103 mg/dL (60-99); HDL Cholesterol 43 mg/dL (>40); Iron 119 mcg/dL (45-160); LDL Cholesterol Calculated 155 mg/dL (<100); Percent Iron Saturation 43 % (15-50); Potassium 4.4 mmol/L (3.3-5.1); Sodium 144 mmol/L (135-145); Total Iron Binding Capacity 276 mcg/dL (228-428); Total Protein 7.3 g/dL (6.5-8.0); Triglycerides 156 mg/dL (<150); Unsaturated Iron Binding 157 ug/dL
[2023-10-28 16:31] LABS: Ferritin 711 ng/mL (20-250)
[2023-10-28 16:32] LABS: Prostate Specific Antigen Scr 1.88 ng/mL (<0.05-4.0)
== END 2023-10-28 14:14 | disposition home or self-care (01) ==
LOC: HO.LAB 14:13
PROVIDERS: PCP Physician Assistant; Visit Provider Physician Assistant
DX: Z12.5 Encounter for screening for malignant neoplasm of prostate (principal); E78.2 Mixed hyperlipidemia; D50.9 Iron deficiency anemia, unspecified; N43.3 Hydrocele, unspecified; Z83.49 Family history of other endocrine, nutritional and metabolic diseases
CPT/HCPCS: 36415; 80053; 80061; 82728; 83540; 84153; 85027

== ENCOUNTER 2023-11-03 11:33 | Outpatient (REF) | payer OTHER, SELFPAY ==
--- NOTE | ~2023-11-03 | US_ITS ---
EXAMINATION: US SCROTUM CLINICAL INFORMATION: Hydrocele, unspecified. COMPARISON: None available. TECHNIQUE: A sonogram of the scrotum was performed assessing anderson-scale appearance and color Doppler flow. Spectral Doppler analysis of the arterial and venous flow were performed in the testes bilaterally. FINDINGS: RIGHT: Right testicle measures 4.1 x 2.3 x 3.0 cm, volume 14.8 mL. No focal testicular parenchymal lesions are visualized. Spectral Doppler analysis of the arterial and venous flow is normal in the right testis. Right epididymal head is normal in size. No right varicocele is seen. A large right hydrocele is present with septation and debris. The right epididymis is not seen. LEFT: Left testicle measures 4.0 x 1.6 x 3.0 cm, volume 10 mL. No focal testicular parenchymal lesions are visualized. Spectral Doppler analysis of the arterial and venous flow is normal in the left testis. Left epididymal head is normal in appearance. Left epididymal Doppler flow is normal. A 7 mm cyst is present in the head of the left epididymis. A small left hydrocele is present. US/US scrotum IMPRESSION: 1. Large right hydrocele with septation and debris. 2. Small left hydrocele. 3. A 7 mm left epididymal cyst.
== END 2023-11-03 11:34 | disposition home or self-care (01) ==
LOC: HO.HMGCX 11:33
PROVIDERS: PCP Physician Assistant; Visit Provider Physician Assistant
DX: N43.3 Hydrocele, unspecified (principal); N50.89 Other specified disorders of the male genital organs
CPT/HCPCS: 76870

== ENCOUNTER 2023-12-16 12:53 | Outpatient (AMB) | payer OTHER, SELFPAY ==
--- NOTE | 2023-12-16 12:57 | A.OFFVIS_ITS ---
Intake Intake Visit Reasons: Hydrocele, unspecified Intake Note: Patient presents today for a follow up on: Hydrocele Meds- None Allergies to Antibiotic- No Known Allergies Blood Thinner- None Switchman Required: No Accompanied by: Self / Same As Patient Allergies No Known Allergies [No Known Allergies*] Allergy (Verified 12/16/23 13:35) Medication List - Last Reconciled 12/16/23 by MASON Rojo No Known Home Meds HPI HPI Comments History of Present Illness Details Jayesh is a very pleasant 58-year-old male patient of Dr. Fernandez who was accompanied by his at today's office visit. He presents to the office today as a new patient for bilateral hydroceles. In discussion with the patient today he reports having had a vasectomy over 20 years ago that was complicated and feels ever since this procedure he has had testicular/scrotal issues. He reports noting increase in scrotal size over the last 5 years. He reports having followed up with his PCP at which time a scrotal ultrasound was ordered and performed. These results reviewed with the patient today. Large right hydrocele with septation and debris and small left hydrocele. In assessment of the patient today large right-sided hydrocele noted. The penis is circumcised. No open areas, lesions, drainage or redness noted. He otherwise denies any bothersome urinary issues or concerns. He reports be happy with current voiding parameters. In office urinalysis results reviewed with the patient today. He denies urinary urgency, urinary frequency, incontinence, nocturia, hematuria, dysuria, foul smelling urine, changes to urinary stream, flank pain, fever, and or chills. [facility] Surgical History History of total right knee replacement Status post LASIK surgery History of vasectomy Status post excision of lipoma Family History Father Lung cancer Smoker Mother Diabetes Lung cancer Brother In good health Renal carcinoma Hemochromatosis Sister In good health Hemochromatosis Son In good health Brother Heart problem Brother Cancer Social History Housing: House Alcohol intake: current Alcohol intake frequency: a few times a month Alcohol type: beer Patient Tobacco Use Status: Never used Tobacco e-Cigarette/Vaping Use: Never Used Second Hand Smoke Exposure: No service: No Current occupational status: employed Current occupation: self employed- [employer] Cognitive needs: No Hearing needs: No Vision needs: No Review of Systems Const All systems reviewed & are unremarkable except as noted in HPI and below Physical Exam Const General: cooperative, healthy appearing, comfortable, no acute distress, well developed, alert and awake Nutritional Appearance: overweight Orientation/consciousness: patient oriented x3 Limitations: no limitations HEENT Head: Yes normal to inspection, Yes normocephalic and Yes atraumatic Ears: hearing grossly normal bilaterally Eyes General: appearance normal, both eyes and all related structures Neck Neck: Yes normal visual inspection and Yes trachea midline Chest Chest palpation & inspection: normal inspection of the chest Resp Effort & Inspection: normal respiratory effort and able to speak in complete sentences Cardio Rate: regular rate GI Inspection: Yes normal to inspection General: Yes no CVA tenderness Back/Spine/Pelvis Back: no CVA tenderness Skin General skin exam: no rashes or lesions noted Neuro General: patient oriented x3 Extrem General: Yes normal to inspection Psych Appearance: grossly normal and well kempt Mental Status: mental status grossly normal Speech and movement: Normal speech and movement present and Clear speech present Affect: normal affect Attitude: cooperative Thought process: Normal thought process present Thought content: Normal thought content present Insight: Fair insight present (Psych) Judgement: Fair judgement present (Psych) Results AMB Urinalysis, Automated UA Leukoctes 0 Tulio/uL Last Edit by Jhoana Gipson CMA on 12/16/23 13 :08 UA Nitrite Negative Last Edit by Jhoana Gipson CMA on 12/16/23 13: 08 UA Urobilinogen 0.2 mg/dL Last Edit by Jhoana Gipson CMA on 4 13:08 UA Protein 0 mg/dL Last Edit by Jhoana Gipson CMA on 12/16/23 13:08 UA pH 6.0 Last Edit by [facility], [facility] on 12/16/23 13:08 UA Blood 10 Demarco/uL [facility], [facility] on 12/16/23 13:08 UA Specific [place] 1.020 Last Edit by [facility], [facility] on 13:08 UA Ketone Negative Last Edit by [facility], [facility] on 12/16/23 13:0 8 UA Bilirubin 0 mg/dL Last Edit by [facility], [facility] on 12/16/23 13: 08 UA Glucose 0 mg/dL Last Edit by [facility], [facility] on 12/16/23 13:08 Results Reviewed Results Reviewed: Laboratory Last Values Urine pH (Auto) 6.0 12/16/23 13:06 Specific [place] (Auto) 1.020 12/16/23 13:06 Urine Protein (Auto) 0 mg/dL 12/16/23 13:06 Glucose (UA)(Auto) 0 mg/dL 12/16/23 13:06 Urine Ketones (Auto) Negative 12/16/23 13:06 Urine Blood (Auto) 10 Demarco/uL 12/16/23 13:06 Urine Nitrite (Auto) Negative 12/16/23 13:06 Urine Bilirubin (Auto) 0 mg/dL 12/16/23 13:06 Urine Urobilinogen (Auto) 0.2 mg/dL 12/16/23 13:06 Leukocyte Esterase (Auto) 0 Tulio/uL 12/16/23 13:06 Date of Service: 11/03/23 EXAMINATION: US SCROTUM FINDINGS: RIGHT: Right testicle measures 4.1 x 2.3 x 3.0 cm, volume 14.8 mL. No focal testicular parenchymal lesions are visualized. Spectral Doppler analysis of the arterial and venous flow is normal in the right testis. Right epididymal head is normal in size. No right varicocele is seen. A large right hydrocele is present with septation and debris. The right epididymis is not seen. LEFT: Left testicle measures 4.0 x 1.6 x 3.0 cm, volume 10 mL. No focal testicular parenchymal lesions are visualized. Spectral Doppler analysis of the arterial and venous flow is normal in the left testis. Left epididymal head is normal in appearance. Left epididymal Doppler flow is normal. A 7 mm cyst is present in the head of the left epididymis. A small left hydrocele is present. IMPRESSION: 1. Large right hydrocele with septation and debris. 2. Small left hydrocele. 3. A 7 mm left epididymal cyst. Assessment & Plan Assessment & Plan (1) Hydrocele: Code(s): N43.3 - Hydrocele, unspecified Qualifiers: Hydrocele type: unspecified Qualified Code(s): N43.3 - Hydrocele, unspecified Plan: Risks, benefits and alternatives to therapy were discussed. These include but are not limited to infection, bleeding, damage to local organs and tissues, need for further interventions. ? Anesthetic risks regarding cardiac arrhythmia, blood clots, and potential mortality were discussed. The patient understands the typical recovery time and the outpatient nature of the procedure. After consideration of these risks the patient gives full informed consent and they wish to move ahead with the procedure. Plan In office urinalysis results reviewed with the patient today; as noted above. Recent scrotal ultrasound results reviewed with the patient today; as noted above. Discussed at length potential causes of hydrocelectomy is; this was discussed at length Discussed further treatment options with surveillance monitoring verses surgical procedure verses in office drainage; risks and benefits of these interventions were discussed at length. Will schedule for right-sided hydrocelectomy as discussed Follow-up per doctor's orders; or sooner with any issues, concerns, and or questions. Orders: Orders AMB Urinalysis Automated Today R33.9 - Retention of urine, unspecified Patient Instructions: The patient had an opportunity to ask questions regarding the treatment plan. All questions were answered. Physical exam, labs, and imaging were discussed and reviewed in detail. As well as risks, benefits, and discussion of treatment choices. No major barriers to understanding were identified. The patient expressed understanding and agreement with the above treatment plan. The patient was made aware they should contact our office by phone for worsening of their current condition, the appearance of new symptoms, or with any questions or concerns. Compliance is encouraged with any medications and follow up testing that is ordered. It is a privilege to be allowed the opportunity to participate in? your urological care.? Again, if you have any questions or concerns If you have any questions or concerns please do not hesitate to contact me. The office is [phone]. This note is constructed using voice recognition software. While every effort has been made to ensure accuracy body bumper errors may have been included. Yours sincerely, MASON Rojo Coding Level of Care Code New Pt Level 4 (18612) Diagnoses Hydrocele, unspecified hydrocele type N43.3 Hydrocele type: unspecified
== END 2023-12-16 13:32 | disposition home or self-care (01) ==
PROVIDERS: PCP Physician Assistant; Visit Provider Nurse Practitioner Family
DX: N43.3 Hydrocele, unspecified (principal); R33.9 Retention of urine, unspecified
CPT/HCPCS: 99204

== ENCOUNTER → 2023-12-16 12:53 | Outpatient (BNVA) | payer OTHER, SELFPAY | PROVIDERS: PCP Physician Assistant; Visit Provider Nurse Practitioner Family | DX: N43.3 Hydrocele, unspecified (principal) | CPT/HCPCS: 81003 ==

== ENCOUNTER 2024-01-25 05:50 | Day surgery (SDC) | payer OTHER, SELFPAY ==
[2024-01-21 13:20] VITALS: BMI 37.0
--- NOTE | 2024-01-24 10:20 | HO.ANESPROP2 ---
Documented by User: Dee Dee Heart NP 01/24/24 10:21 HPI - Anesthesia Eval Consult details Narrative: 58yo M for Right Hydrocele Repair PMFSH Active Problems Active Problems: All Active Problems Family history of hemochromatosis (Acute) Scrotum swelling (Acute) Hydrocele (Acute) Family history of renal cell carcinoma (Acute) Right flank pain (Acute) HLD (hyperlipidemia) (Acute) Pulmonary infiltrate (Acute) COVID-19 (Acute) Obese (Acute) Screening for hypothyroidism (Acute) Screening for hypercholesterolemia (Acute) Screening for diabetes mellitus (Acute) Annual physical exam (Acute) Family History Family History Father Lung cancer Smoker Mother Diabetes Lung cancer Brother In good health Renal carcinoma Hemochromatosis Sister In good health Hemochromatosis Son In good health Brother Heart problem Brother Cancer Surgical History Surgical History History of total right knee replacement Status post LASIK surgery History of vasectomy Status post excision of lipoma Social History Social History Housing: House Alcohol intake: current Alcohol intake frequency: a few times a month Alcohol type: beer Patient Tobacco Use Status: Never used Tobacco e-Cigarette/Vaping Use: Never Used Second Hand Smoke Exposure: No Use of substances other than those prescribed or required for medical reasons: No Are you DNR?: No Advance Directives: No Advance Directives Information Provided: Yes service: No Current occupational status: employed Current occupation: self employed- [employer] Cognitive needs: No Hearing needs: No Vision needs: No Meds Allergies Allergy/AdvReac Type Severity Reaction Status Date / Time No Known Allergies Allergy Verified 01/25/24 06:13 [No Known Allergies*] Home Medications ?Medication ?Instructions ?Recorded ?Confirmed ?Last Taken ?Type No Known Home Meds 12/16/23 01/25/24 Unknown History Exam Height,Weight and Vital Signs: Height 6 ft Weight 123.831 kg Pertinent Lab Results Pertinent Lab Results: Laboratory Tests 10/28/23 14:21 WBC 7.2 Hgb 16.3 Hct 46.7 Plt Count 244 Sodium 144 Potassium 4.4 Chloride 109 H Carbon Dioxide 28 BUN 10 Creatinine 0.95 Assessment and Plan Assessment Anesthesia Assessment: Chart Reviewed Documented by User: Darion Messina MD 01/25/24 07:29 PMF Past Medical History Narrative: Has sleep apnea. Family History Family History Father Lung cancer Smoker Mother Diabetes Lung cancer Brother In good health Renal carcinoma Hemochromatosis Sister In good health Hemochromatosis Son In good health Brother Heart problem Brother Cancer Family history of problems with anesthesia: No Surgical History Surgical History History of total right knee replacement Status post LASIK surgery History of vasectomy Status post excision of lipoma History of Problems with Anesthesia: No Social History Social History Housing: House Alcohol intake: current Alcohol intake frequency: a few times a month Alcohol type: beer Patient Tobacco Use Status: Never used Tobacco e-Cigarette/Vaping Use: Never Used Second Hand Smoke Exposure: No Use of substances other than those prescribed or required for medical reasons: No Are you DNR?: No Advance Directives: No Advance Directives Information Provided: Yes service: No Current occupational status: employed Current occupation: self employed- [employer] Cognitive needs: No Hearing needs: No Vision needs: No Meds Allergies Allergy/AdvReac Type Severity Reaction Status Date / Time No Known Allergies Allergy Verified 01/25/24 06:13 [No Known Allergies*] Home Medications ?Medication ?Instructions ?Recorded ?Confirmed ?Last Taken ?Type No Known Home Meds 12/16/23 01/25/24 Unknown History Exam Airway Mallampati Class: II TM Dist: <=3cm Neck ROM: Full Loose/Missing/Broken Teeth: No Heart: ok Lungs: ok Assessment and Plan Assessment Anesthesia Assessment: Anesthesia Plan Discussed Final Anesthetic Review Family History of Problems with Anesthesia: No History of Problems with Anesthesia: No NPO: Yes ASA Class: III Final Preanesthetic Review: No Changes in Pt Med Stat, Meds/Allgs Chart Reviewed, Consent Obtained/Reviewed and Anes Risks/Benef Reviewed Patient Risk: Intermediate Procedure Risk: Low Anesthetic Plan Anesthetic Plan: GA and Agree w/ Assess. and Plan Disposition: Standard PACU
[2024-01-25] VITALS (7 sets, daily range): BP systolic 128–147; BP diastolic 72–95; PULSE 65–75; RESP 18–20; TEMP 36.1–36.7; O2SAT 94–98; BMI 35.3
[2024-01-25] MEDS: Lactated Ringers 1,000 ML 100 ML IVCONT (06:42)
--- NOTE | 2024-01-25 07:21 | MHC.SHP ---
Pre-Procedural Eval Section A - 24 Hr Update-Section A only Date of Service: 01/25/24 The patient is an INPATIENT: No The patient has been examined within 24 hours of the surgical procedure. The History & Physical has been completed within 30 days and I have reviewed it.: Yes Section B - Complete if H&P > 30 days Chief Complaint: Hydrocele, unspecified Allergies: Allergies Allergy/AdvReac Type Severity Reaction Status Date / Time No Known Allergies Allergy Verified 01/25/24 06:13 [No Known Allergies*] Plan Diagnosis/Plan: Unchanged (Right hydrocele) I have reviewed the history and physical and performed a pertinent physical examination on my patient. No changes have occurred unless specified. Right hydrocelectomy. Time Spent With Patient Time: Total time managing care of this patient today ____ minutes.
--- NOTE | 2024-01-25 08:54 | W.PM.OPN ---
Operative Note Operative Note Date of Service: 01/25/24 Narrative: PreOperative Diagnosis:? ? Right hydrocele Post Operative Diagnosis: Right spermatocele Procedure: Right spermatocelectomy, Surgeon:?Dr Scarlett Peck Anesthesia:? General Procedure: After informed consent was verified the patient was brought to the operating room and placed in a supine position.? Anesthesia was performed per protocol. The patient was prepped and draped in the usual sterile fashion. Safety pause time-out was performed. A sterile marker was used to yaneth the median raphe. Attention was taken to the right hemiscrotum A horizontal incision was made through the skin with a 15 blade knife, cautery was used to incise the dartos fascia, the plane between the dartos fascia and the tunical vaginalis was developed with blunt dissection and cautery. The membrane containing cystic fluid was not around the testicle but instead superficially; the membrane was opened fluid was sent for cytology and the rest of the fluid was suctioned. The spermatocele membrane was incised the edges were sutured with 3-0 chromic. The testicle was placed back into proper position within the scrotum. Cautery was used for hemostasis. The dartos fascia was closed with running locking 3-0 chromic and the skin was closed with interrupted 3-0 chromic there was good hemostasis noted. The patient tolerated the procedure well and was transferred to the recovery area upon completion. Complications: None Drains: None
[2024-01-25] MEDS: Acetaminophen 325 MG TABLET 650 MG PO (09:09)
[2024-01-25] MEDS: fentaNYL citrate/PF 100 MCG/2 ML VIAL 50 MCG IVPUSH (09:21)
== END 2024-01-25 10:05 | disposition home or self-care (01) ==
PROVIDERS: PCP Physician Assistant; Visit Provider Urology
PROC: (CPT 55060; principal; 2024-01-25 07:30)
DX: N43.41 Spermatocele of epididymis, single (principal); L72.0 Epidermal cyst; Z98.52 Vasectomy status; Z96.651 Presence of right artificial knee joint; Z98.890 Other specified postprocedural states
CPT/HCPCS: 54840; 88112; 88302; J0690; J2704; J2795; J3010; Q9967

== ENCOUNTER → 2024-01-25 05:50 | Outpatient (BNV) | payer OTHER, SELFPAY | PROVIDERS: PCP Physician Assistant; Visit Provider Urology | DX: N43.41 Spermatocele of epididymis, single (principal) | CPT/HCPCS: 54840 ==

== ENCOUNTER 2024-01-28 09:01 | Outpatient (AMB) | payer OTHER, SELFPAY ==
--- NOTE | 2024-01-28 09:04 | AM.OFFWIN_ITS ---
Intake Vital Signs 01/28/24 09:26 Height 5 ft 11 in Weight 269 lb BMI 37.5 BP 110/70 Blood Pressure Location Lt brachial Position Sitting Pulse 108 H Pulse Source Pulse Oximeter Temp 97.5 F Temp Source Temporal Artery Scan Pulse Oximetry (%) 97 Oxygen Delivery Method Room Air Intake Visit Reasons: Ep right ankle swollen hard to walk Intake Note: pt is here today for rt ankle swollen hard to walk started 2 weeks ago Patient Tobacco Use Status: Never used Tobacco Allergies No Known Allergies [No Known Allergies*] Allergy (Verified 01/28/24 09:30) Do you need a note to return to daycare/school/sports/work: No HPI HPI Comments History of Present Illness Details 58 y/o male patient who presents to walk in clinic with c/o right Ankle pain for 2 weeks now. [facility] Surgical History History of total right knee replacement Status post LASIK surgery History of vasectomy Status post excision of lipoma Family History Father Lung cancer Smoker Mother Diabetes Lung cancer Brother In good health Renal carcinoma Hemochromatosis Sister In good health Hemochromatosis Son In good health Brother Heart problem Brother Cancer Social History Housing: House Alcohol intake: current Alcohol intake frequency: a few times a month Alcohol type: beer Patient Tobacco Use Status: Never used Tobacco e-Cigarette/Vaping Use: Never Used Second Hand Smoke Exposure: No service: No Current occupational status: employed Current occupation: self employed- [employer] Cognitive needs: No Hearing needs: No Vision needs: No Review of Systems Const All systems reviewed & are unremarkable except as noted in HPI and below Physical Exam Vital Signs: Last Vital Signs Temp 97.5 F 01/28/24 09:26 Pulse 108 H 01/28/24 09:26 BP 110/70 01/28/24 09:26 Pulse Ox 97 01/28/24 09:26 Oxygen Delivery Method Room Air 01/28/24 09:26 BMI result Body Mass Index 37.5 Const General: no acute distress; No comfortable Nutritional Appearance: overweight Orientation/consciousness: patient oriented x3 Neuro Other: Walking with crutches General: patient oriented x3 and moves all extremities Extrem Right lower extremity: normal to inspection, full ROM and ankle Details: tenderness Location: of the medial malleolus and of the achilles tendon and swelling Details: medially Left lower extremity: normal to inspection and full ROM Psych Speech and movement: Normal speech and movement present Assessment & Plan Assessment & Plan (1) Acute right ankle pain: Code(s): M25.571 - Pain in right ankle and joints of right foot Plan: - Xray to r/o Fracture - AirCast - Rest - IceHot Orders: Orders XR ankle RT min 3V Today S96.919A - Strain of unspecified muscle and tendon at ankle and foot level, unspecified foot, initial encounter Referrals Orthopedics Referral M25.571 - Pain in right ankle and joints of right foot Medications: New ibuprofen 600 mg PO Q6H PRN 20 tabs 0RF pain M25.571 - Pain in right ankle and joints of right foot Coding Level of Care Code Est Pt Level 4 (13610) Diagnoses Acute right ankle pain M25.571 Time Spent (min) 20
[2024-01-28 09:26] VITALS: BP 110/70; PULSE 108; TEMP 36.4; O2SAT 97; BMI 37.5
== END 2024-01-28 10:31 | disposition home or self-care (01) ==
PROVIDERS: PCP Physician Assistant; Visit Provider Nurse Practitioner Family
DX: M25.571 Pain in right ankle and joints of right foot (principal)
CPT/HCPCS: 99214

== ENCOUNTER 2024-01-28 10:08 | Outpatient (REF) | payer OTHER, SELFPAY ==
--- NOTE | ~2024-01-28 | XR_ITS ---
EXAMINATION: XR ANKLE, RIGHT CLINICAL INFORMATION: Ankle trauma COMPARISON: None available. TECHNIQUE: AP, lateral, and mortise views of the right ankle. FINDINGS: Considerable lateral soft tissue swelling is evident. There is an oblique nondisplaced fracture of the lateral malleolus. The medial malleolus, talar dome and ankle mortise are intact. XR/XR ankle RT min 3V IMPRESSION: Nondisplaced fracture of the lateral malleolus of the distal fibula with associated soft tissue swelling.
== END 2024-01-28 10:09 | disposition home or self-care (01) ==
LOC: HO.HMGCX 10:08
PROVIDERS: PCP Physician Assistant; Visit Provider Nurse Practitioner Family
DX: S96.911A Strain of unspecified muscle and tendon at ankle and foot level, right foot, initial encounter (principal)
CPT/HCPCS: 73610

== ENCOUNTER 2024-02-08 10:14 | Outpatient (AMB) | payer OTHER, SELFPAY ==
[2024-02-08 10:48] VITALS: BP 120/78; PULSE 121; TEMP 36.3; O2SAT 98; BMI 37.1
--- NOTE | 2024-02-08 10:48 | AM.OFFWIN_ITS ---
Intake Vital Signs 02/08/24 10:48 02/08/24 11:37 Height 5 ft 11 in Weight 266 lb BMI 37.1 BP 120/78 Blood Pressure Location Lt brachial Position Sitting Pulse 121 H 96 Pulse Source Pulse Oximeter Pulse Oximeter Temp 97.4 F Temp Source Temporal Artery Scan Pulse Oximetry (%) 98 Oxygen Delivery Method Room Air Intake Visit Reasons: EP ?Gout on both Feet Intake Note: pt is here today for gout on both feet started 6 months ago Patient Tobacco Use Status: Never used Tobacco Allergies No Known Allergies [No Known Allergies*] Allergy (Verified 02/08/24 11:36) Medication List - Last Reconciled 02/08/24 by ALMAZ Fournier ibuprofen 600 mg PO Q6H PRN Do you need a note to return to daycare/school/sports/work: No HPI HPI Comments History of Present Illness Details Patient is a 58-year-old male in today for a sick visit. Patient was recently seen in our walk-in clinic 9 days prior for right ankle pain that after x-rays revealed nondisplaced fracture of the lateral medialis of the right ankle. Patient is here today with a complaint of left foot pain. Denies trauma to the area. Reports that he woke up felt pain on the instep of his left foot, noticed small amount of swelling and redness. Patient is able to ambulate on the affected limb, however it is painful. Has not taken any medication for relief. Does have strong family history of gout. Denies any tingling or numbness. [facility] Surgical History History of total right knee replacement Status post LASIK surgery History of vasectomy Status post excision of lipoma Family History Father Lung cancer Smoker Mother Diabetes Lung cancer Brother In good health Renal carcinoma Hemochromatosis Sister In good health Hemochromatosis Son In good health Brother Heart problem Brother Cancer Social History Housing: House Alcohol intake: current Alcohol intake frequency: a few times a month Alcohol type: beer Patient Tobacco Use Status: Never used Tobacco e-Cigarette/Vaping Use: Never Used Second Hand Smoke Exposure: No service: No Current occupational status: employed Current occupation: self employed- [employer] Cognitive needs: No Hearing needs: No Vision needs: No Review of Systems Const All systems reviewed & are unremarkable except as noted in HPI and below Physical Exam Vital Signs: Last Vital Signs Temp 97.4 F 02/08/24 10:48 Pulse 121 H 02/08/24 10:48 BP 120/78 02/08/24 10:48 Pulse Ox 98 02/08/24 10:48 Oxygen Delivery Method Room Air 02/08/24 10:48 BMI result Body Mass Index 37.1 Const Other: Appearance: Alert.? Oriented X3.? No acute distress.? ENT: Pharynx normal.? Neck: Normal inspection.? Neck supple.? CVS: Normal heart rate and rhythm.? Pulses normal.? Respiratory: No respiratory distress.? Breath sounds normal.? Abdomen: Soft and nontender.? Skin: Skin warm and dry.? Normal skin color.? Normal skin turgor.? Extremities: Scant left foot edema. +erythema over first and second metatarsal. No discharge. Patient able to ambulate on extremity. Full ROM. Neuro: Oriented X 3.? No motor deficit.? No sensory deficit. Assessment & Plan Assessment & Plan (1) Left foot pain: Comment: Obtained x-ray of left foot. Likely gout. Patient will be given meloxicam and prednisone to be taken as directed. Patient has been educated on signs of worsening symptoms and when to report back to the walk-in or when to present to the ED Code(s): M79.672 - Pain in left foot Plan: Take your medications as prescribed. If you were prescribed antibiotics today, it is important that you take your medication to their entirety, do not skip any doses, do not finish them early. Follow-up with your primary care provider this week. Return to the emergency department with new or worsening symptoms. Such as fevers, chills, chest pain, shortness of breath, nausea, vomiting, dizziness, headache, vision changes, lethargy In case of emergency call 911 Plan Follow up with PCP. Medications: New prednisone 20 mg PO BID 10 tabs 0RF meloxicam Do not combine with other NSAIDS. 15 mg PO DAILY 14 tabs 0RF Coding Level of Care Code Est Pt Level 3 (49823) Diagnoses Left foot pain M79.672 Time Spent (min) 24
[2024-02-08 11:37] VITALS: PULSE 96
== END 2024-02-08 12:11 | disposition home or self-care (01) ==
PROVIDERS: PCP Physician Assistant; Visit Provider Nurse Practitioner Primary Care
DX: M79.672 Pain in left foot (principal)
CPT/HCPCS: 99213

== ENCOUNTER 2024-02-08 11:34 | Outpatient (REF) | payer OTHER, SELFPAY ==
--- NOTE | ~2024-02-08 | XR_ITS ---
EXAMINATION: XR FOOT, LEFT CLINICAL INFORMATION: Left foot pain. COMPARISON: None available. TECHNIQUE: AP, lateral, and oblique views of the left foot. FINDINGS: No acute fracture or dislocation. Moderate joint space narrowing with marginal osteophytes at the first metatarsophalangeal joint and hallux sesamoids. No osseous erosion. Plantar and dorsal calcaneal spurs. XR/XR foot LT min 3V IMPRESSION: 1. 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 2. Plantar and dorsal calcaneal spurs.
== END 2024-02-08 11:35 | disposition home or self-care (01) ==
LOC: HO.HMGCX 11:34
PROVIDERS: PCP Physician Assistant; Visit Provider Nurse Practitioner Primary Care
DX: M79.672 Pain in left foot (principal)
CPT/HCPCS: 73630

== ENCOUNTER 2024-03-01 15:18 | Outpatient (AMB) | payer OTHER, SELFPAY ==
--- NOTE | 2024-03-01 15:38 | A.OFFVIS_ITS ---
Intake Visit Reasons: Hydrocelectomy- follow up Intake Note: Patient presents today for Post Op Meds- None Allergies to Antibiotic- No Known Allergies Blood Thinner- None Riding Teacher Required: No Accompanied by: Self / Same As Patient Allergies No Known Allergies [No Known Allergies*] Allergy (Verified 03/01/24 15:39) HPI Comments Details: 03/01/24--Initial clinical diagnosis hydrocele. S/P spermatocelectomy, 01/25/24, exam scrotum well healed. Cyst fluid sent form the OR. Patient had seen pain initially postop but is feeling good now. Has had pain in the lower thigh which is likely groin strain. He states his father had kidney cancer. Will check a renal ultrasound telehealth follow-up Reviewed PSA 10/28/2023--1.88 Review of chart: 12/16/23--Jayesh is a very pleasant 58-year-old male patient of Dr. Fernandez who was accompanied by his at today's office visit. He presents to the office today as a new patient for bilateral hydroceles. In discussion with the patient today he reports having had a vasectomy over 20 years ago that was complicated and feels ever since this procedure he has had testicular/scrotal is sues. He reports noting increase in scrotal size over the last 5 years. He reports having followed up with his PCP at which time a scrotal ultrasound was ordered and performed. These results reviewed with the patient today. Large right hydrocele with septation and debris and small left hydrocele. In assessment of the patient today large right-sided hydrocele noted. The penis is circumcised. No open areas, lesions, drainage or redness noted. He otherwise denies any bothersome urinary issues or concerns. He reports be happy with current voiding parameters. In office urinalysis results reviewed with the patient today. He denies urinary urgency, urinary frequency, incontinence, nocturia, hematuria, dysuria, foul smelling urine, changes to urinary stream, flank pain, fever, and or chills. [facility] Surgical History History of total right knee replacement Status post LASIK surgery History of vasectomy Status post excision of lipoma Family History Father Lung cancer Smoker Mother Diabetes Lung cancer Brother In good health Renal carcinoma Hemochromatosis Sister In good health Hemochromatosis Son In good health Brother Heart problem Brother Cancer Social History Housing: House Alcohol intake: current Alcohol intake frequency: a few times a month Alcohol type: beer Patient Tobacco Use Status: Never used Tobacco e-Cigarette/Vaping Use: Never Used Second Hand Smoke Exposure: No service: No Current occupational status: employed Current occupation: self employed- [employer] Cognitive needs: No Hearing needs: No Vision needs: No Review of Systems Const All systems reviewed & are unremarkable except as noted in HPI and below Reports no additional complaints Eyes Reports no additional complaints ENT Reports no additional complaints Card Reports no additional complaints Resp Reports no additional complaints GI Reports no additional complaints Reports as per HPI Musc Reports no additional complaints Skin/Breast Reports system reviewed and no additional complaints, except as documented Neuro Reports no additional complaints Psych Reports no additional complaints Endo Reports no additional complaints Bentley/Lymph Reports no additional complaints Aller/Immun Reports no additional complaints Results AMB Urinalysis, Automated UA Leukoctes 0 Tulio/uL Last Edit by JAEL Lamas on 03/01/24 15:59 UA Nitrite Negative Last Edit by JAEL Lamas on 03/01/24 15:59 UA Urobilinogen 0.2 mg/dL Last Edit by JAEL Lamas on 03/01/24 15:5 9 UA Protein 0 mg/dL Last Edit by JAEL Lamas on 03/01/24 15:59 UA pH 5.5 Last Edit by JAEL Lamas on 03/01/24 15:59 UA Blood 0 Demarco/uL Last Edit by JAEL Lamas on 03/01/24 15:59 UA Specific Stoddard 1.010 Last Edit by JAEL Lamas on 03/01/24 15: 59 UA Ketone Negative Last Edit by JAEL Lamas on 03/01/24 15:59 UA Bilirubin 0 mg/dL Last Edit by JAEL Lamas on 03/01/24 15:59 UA Glucose 0 mg/dL Last Edit by JAEL Lamas on 03/01/24 15:59 Results Reviewed Results Reviewed: Laboratory Last Values Urine pH (Auto) 5.5 03/01/24 15:46 Specific Stoddard (Auto) 1.010 03/01/24 15:46 Urine Protein (Auto) 0 mg/dL 03/01/24 15:46 Glucose (UA)(Auto) 0 mg/dL 03/01/24 15:46 Urine Ketones (Auto) Negative 03/01/24 15:46 Urine Blood (Auto) 0 Demarco/uL 03/01/24 15:46 Urine Nitrite (Auto) Negative 03/01/24 15:46 Urine Bilirubin (Auto) 0 mg/dL 03/01/24 15:46 Urine Urobilinogen (Auto) 0.2 mg/dL 03/01/24 15:46 Leukocyte Esterase (Auto) 0 Tulio/uL 03/01/24 15:46 Collected: 01/25/24 Location: [facility] Received: 01/26/24 Diagnosis Right hydrocele fluid: No malignancy identified. See comment. Comment: Abundant sperm and few flat sheets of bland epithelioid cells; no features of malignancy are seen. Clinical History Right hydrocele Material Received Right hydrocele fluid Gross Description Received are 40 cc of cloudy, yellow-white fluid from which a ThinPrep slide is prepared. Assessment & Plan Assessment & Plan (1) Spermatocele: Code(s): N43.40 - Spermatocele of epididymis, unspecified Category: Medical (2) Family history of kidney cancer: Code(s): Z80.51 - Family history of malignant neoplasm of kidney Category: Medical Plan Renal US. PSA screening. Orders: Orders AMB Urinalysis Automated 03/01/24 Z13.9 - Encounter for screening, unspecified US renal BI 03/01/24 Z80.51 - Family history of malignant neoplasm of kidney Patient Instructions: The patient had an opportunity to ask questions regarding treatment plan. The patient expressed understanding and agreement with the above treatment plan. The patient is aware they should contact our office by phone for worsening of their current condition or the appearance of new symptoms. Compliance is encouraged with any medications and followup testing that is ordered. It is a privilege to be allowed the opportunity to participate in the urologic care of your patient. If you have any questions or concerns regarding treatment for the above conditions please do not hesitate to contact me. The office telephone contact is [phone]. This note is constructed in part using voice recognition software. While every effort has been made to ensure accuracy emulsion coater errors may have been included. Yours sincerely, Scarlett Peck MD Coding Level of Care Code Est Pt Level 3 (79706) Diagnoses Spermatocele N43.40 Family history of kidney cancer Z80.51
== END 2024-03-01 16:16 | disposition home or self-care (01) ==
PROVIDERS: PCP Physician Assistant; Visit Provider Urology
DX: N43.40 Spermatocele of epididymis, unspecified (principal); Z80.51 Family history of malignant neoplasm of kidney
CPT/HCPCS: 99024

== ENCOUNTER → 2024-03-01 15:18 | Outpatient (BNVA) | payer OTHER, SELFPAY | PROVIDERS: PCP Physician Assistant; Visit Provider Urology | DX: Z48.816 Encounter for surgical aftercare following surgery on the genitourinary system (principal); Z87.438 Personal history of other diseases of male genital organs; Z80.51 Family history of malignant neoplasm of kidney | CPT/HCPCS: 81003 ==

== ENCOUNTER 2024-04-10 11:08 | Outpatient (REF) | payer OTHER, SELFPAY ==
--- NOTE | ~2024-04-10 | US_ITS ---
EXAMINATION: US RETROPERITONEAL LIMITED (RENAL ONLY) CLINICAL INFORMATION: Family history of malignant neoplasm of kidney. COMPARISON: Renal ultrasound 12/03/2022. X-ray abdomen KUB 11/27/2022. Renal ultrasound 03/13/2019. TECHNIQUE: Real-time imaging of the kidneys. Limited visualization due to bowel gas. FINDINGS: RIGHT KIDNEY: 12.1 x 6.6 x 5.6 cm (SAG x AP x TRV). No hydronephrosis. No renal calculi. Renal cortical thickness is normal. Limited visualization. LEFT KIDNEY: 13.1 x 5.6 x 4.9 cm (SAG x AP x TRV). No hydronephrosis. No renal calculi. Renal cortical thickness is normal. Limited visualization. ADDITIONAL FINDINGS: Incidental note on limited views of the gallbladder of cholelithiasis. Dedicated ultrasound of the abdomen could be considered for further evaluation. US/US renal BI IMPRESSION: 1. No hydronephrosis. No renal calculi. Renal cortical thickness is normal. Limited visualization. 2. Incidental note on limited views of the gallbladder of cholelithiasis. Dedicated ultrasound of the abdomen could be considered for further evaluation.
== END 2024-04-10 11:09 | disposition home or self-care (01) ==
LOC: HO.US 11:08
PROVIDERS: PCP Physician Assistant; Visit Provider Urology
DX: K80.20 Calculus of gallbladder without cholecystitis without obstruction (principal); Z80.51 Family history of malignant neoplasm of kidney
CPT/HCPCS: 76775

== ENCOUNTER 2024-05-04 15:05 | Outpatient (AMB) | payer OTHER, SELFPAY ==
--- NOTE | 2024-05-04 13:07 | MHC.OFFVIS ---
Intake Visit Reasons: 2m/US Intake Note: Patient is present for 2m/US Urology Medication:NONE Antibiotic Allergy:NONE Blood Thinner:NONE Heat Set Operator Required: No Allergies No Known Allergies [No Known Allergies*] Allergy (Verified 05/04/24 14:59) HPI Comments Details: 05/04/24--S/P spermatocelectomy, 01/25/24, no complaints. FH - father kidney cancer, FU renal US-04/10/24 kidneys WNL. PSA screening. Review of chart: 03/01/24--Initial clinical diagnosis hydrocele. S/P spermatocelectomy, 01/25/24, exam scrotum well healed. Cyst fluid sent form the OR. Patient had seen pain initially postop but is feeling good now. Has had pain in the lower thigh which is likely groin strain. He states his father had kidney cancer. Will check a renal ultrasound telehealth follow-up. Reviewed PSA 10/28/2023--1.88 12/16/23--Jayesh is a very pleasant 58-year-old male patient of Dr. Fernandez who was accompanied by his at today's office visit. He presents to the office today as a new patient for bilateral hydroceles. In discussion with the patient today he reports having had a vasectomy over 20 years ago that was complicated and feels ever since this procedure he has had testicular/scrotal issues. He reports noting increase in scrotal size over the last 5 years. He reports having followed up with his PCP at which time a scrotal ultrasound was ordered and performed. These results reviewed with the patient today. Large right hydrocele with septation and debris and small left hydrocele. In assessment of the patient today large right-sided hydrocele noted. The penis is circumcised. No open areas, lesions, drainage or redness noted. He otherwise denies any bothersome urinary issues or concerns. He reports be happy with current voiding parameters. In office urinalysis results reviewed with the patient today. He denies urinary urgency, urinary frequency, incontinence, nocturia, hematuria, dysuria, foul smelling urine, changes to urinary stream, flank pain, fever, and or chills. [facility] Surgical History History of total right knee replacement Status post LASIK surgery History of vasectomy Status post excision of lipoma Family History Father Lung cancer Smoker Mother Diabetes Lung cancer Brother In good health Renal carcinoma Hemochromatosis Sister In good health Hemochromatosis Son In good health Brother Heart problem Brother Cancer Social History Housing: House Alcohol intake: current Alcohol intake frequency: a few times a month Alcohol type: beer Patient Tobacco Use Status: Never used Tobacco e-Cigarette/Vaping Use: Never Used Second Hand Smoke Exposure: No service: No Current occupational status: employed Current occupation: self employed- [employer] Cognitive needs: No Hearing needs: No Vision needs: No Review of Systems Const All systems reviewed & are unremarkable except as noted in HPI and below Reports no additional complaints Eyes Reports no additional complaints ENT Reports no additional complaints Card Reports no additional complaints Resp Reports no additional complaints GI Reports no additional complaints Reports as per HPI Musc Reports no additional complaints Skin/Breast Reports system reviewed and no additional complaints, except as documented Neuro Reports no additional complaints Psych Reports no additional complaints Endo Reports no additional complaints Bentley/Lymph Reports no additional complaints Aller/Immun Reports no additional complaints Results Reviewed Results Reviewed: Date of Service: 04/10/24 EXAMINATION: US RETROPERITONEAL LIMITED (RENAL ONLY) CLINICAL INFORMATION: Family history of malignant neoplasm of kidney. COMPARISON: Renal ultrasound 12/03/2022. X-ray abdomen KUB 11/27/2022. Renal ultrasound 03/13/2019. TECHNIQUE: Real-time imaging of the kidneys. Limited visualization due to bowel gas. FINDINGS: RIGHT KIDNEY: 12.1 x 6.6 x 5.6 cm (SAG x AP x TRV). No hydronephrosis. No renal calculi. Renal cortical thickness is normal. Limited visualization. LEFT KIDNEY: 13.1 x 5.6 x 4.9 cm (SAG x AP x TRV). No hydronephrosis. No renal calculi. Renal cortical thickness is normal. Limited visualization. ADDITIONAL FINDINGS: Incidental note on limited views of the gallbladder of cholelithiasis. Dedicated ultrasound of the abdomen could be considered for further evaluation. IMPRESSION: 1. No hydronephrosis. No renal calculi. Renal cortical thickness is normal. Limited visualization. 2. Incidental note on limited views of the gallbladder of cholelithiasis. Dedicated ultrasound of the abdomen could be considered for further evaluation. Collected: 01/25/24 Location: [facility] Received: 01/26/24 Diagnosis Right hydrocele fluid: No malignancy identified. See comment. Comment: Abundant sperm and few flat sheets of bland epithelioid cells; no features of malignancy are seen. Clinical History Right hydrocele Material Received Right hydrocele fluid Gross Description Received are 40 cc of cloudy, yellow-white fluid from which a ThinPrep slide is prepared. Assessment & Plan Assessment & Plan (1) Screening PSA (prostate specific antigen): Code(s): Z12.5 - Encounter for screening for malignant neoplasm of prostate Category: Medical (2) Family history of kidney cancer: Code(s): Z80.51 - Family history of malignant neoplasm of kidney Category: Medical Plan FU in 9 months Orders: Orders PSA,Total (Free>4and<10) 9 Months Z12.5 - Encounter for screening for malignant neoplasm of prostate Patient Instructions: The patient had an opportunity to ask questions regarding treatment plan. The patient expressed understanding and agreement with the above treatment plan. The patient is aware they should contact our office by phone for worsening of their current condition or the appearance of new symptoms. Compliance is encouraged with any medications and followup testing that is ordered. It is a privilege to be allowed the opportunity to participate in the urologic care of your patient. If you have any questions or concerns regarding treatment for the above conditions please do not hesitate to contact me. The office telephone contact is [phone]. This note is constructed in part using voice recognition software. While every effort has been made to ensure accuracy retail marketing specialist errors may have been included. Yours sincerely, Scarlett Peck MD Coding Level of Care Code Est Pt Level 3 (80542) Diagnoses Screening PSA (prostate specific antigen) Z12.5 Family history of kidney cancer Z80.51
== END 2024-05-04 15:40 | disposition home or self-care (01) ==
LOC: HO.HUSH 15:05
PROVIDERS: PCP Physician Assistant; Visit Provider Urology
DX: Z12.5 Encounter for screening for malignant neoplasm of prostate (principal); Z80.51 Family history of malignant neoplasm of kidney
CPT/HCPCS: 99213

== ENCOUNTER → 2024-05-04 15:05 | Outpatient (BNVA) | payer OTHER, SELFPAY | PROVIDERS: PCP Physician Assistant; Visit Provider Urology ==

== ENCOUNTER 2025-02-21 08:22 | Outpatient (AMB) | payer OTHER, SELFPAY ==
[2025-02-21 08:26] VITALS: BP 124/82; PULSE 71; RESP 18; TEMP 36.2; O2SAT 97; BMI 37.5
--- NOTE | 2025-02-21 08:26 | A.OFFPC_ITS ---
Vital Signs 02/21/25 08:26 Height 5 ft 11 in Weight 269 lb 3.2 oz BMI 37.5 BP 124/82 Blood Pressure Location Lt brachial Position Sitting Respiration 18 Pulse 71 Pulse Source Pulse Oximeter Temp 97.1 F Temp Source Temporal Artery Scan Pulse Oximetry (%) 97 Oxygen Delivery Method Room Air Intake Visit Reasons: PE Work Station Support Specialist Required: No Accompanied by: Self / Same As Patient Allergies No Known Allergies [No Known Allergies*] Allergy (Verified 02/21/25 08:46) Medication List - Last Reconciled 02/21/25 by Zheng Fernandez PA-C No Known Home Meds Tobacco use date assessed: 02/21/25 Dental Screening Dental Screen Date: 02/21/25 Did you have a dental visit in the last 12 months?: Yes Did you have a dental problem in the last 6 months where you did not have access to dental care?: No Was dental information given to patient?: Patient has dentist HPI PE HPI Details Patient is a 59-year-old male here today for annual physical.? Patient has a past medical history significant for obesity. Otherwise healthy. Concerns--> has right lower back pain from time to time Obesity:? Patient does understand his BMI is over 30 and has been working on being more physically active and a doctor in a better eating habits to reduce his weight. .. Hyperlipidemia: Most recent lipid panel showing elevated total cholesterol and LDL. Patient working on lifestyle modifications to reduce his cholesterol. He reports side effect of life cramping with statin medication thus has not been regularly taking the medication. ?? Colononoscopy 2015- Dr. Orozco, repeat 10 years . .. Vaccine: UTD with? FLu, up-to-date with tetanus, , UTD with COVID, declined flu vaccine. Needs pneumonia vaccine [facility] Surgical History History of total right knee replacement Status post LASIK surgery History of vasectomy Status post excision of lipoma Family History Father Lung cancer Smoker Mother Diabetes Lung cancer Brother In good health Renal carcinoma Hemochromatosis Sister In good health Hemochromatosis Son In good health Brother Heart problem Brother Cancer Social History Housing: House Alcohol intake: current Alcohol intake frequency: a few times a month Alcohol type: beer Patient Tobacco Use Status: Never used Tobacco e-Cigarette/Vaping Use: Never Used Second Hand Smoke Exposure: No service: No Current occupational status: employed 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 1. Little interest or pleasure in doing things: not at all 2. Feeling down, depressed, or hopeless: not at all 3. Trouble falling or staying asleep, or sleeping too much: not at all 4. Feeling tired or having little energy: not at all 5. Poor appetite or overeating: not at all 6. Feeling bad about yourself - or that you are a failure or have let yourself or your family down: not at all 7. Trouble concentrating on things, such as reading the newspaper or watching television: not at all 8. Moving or speaking so slowly that other people could have noticed. Or the opposite - being so fidgety or restless that you have been moving around a lot more than usual: not at all 9. Thoughts that you would be better off or of hurting yourself in some way: not at all Total score: 0 Depression Screening Interpretation: Negative Depression Screening Done: Yes 41310 - PHQ-9 Billing: Yes Source: Developed by Drs. Alonzo Ayoub, Denice Lay, Chucho Patiño and colleagues, with an educational gurmeet from [employer]. Thrive Questionnaire Date Thrive assessed: 02/21/25 I am a: Patient What is your living situation today?: I have a steady place to live Within the past 12 months, did the food you bought not last and you didn't have the money to get more?: Never true Within the past 12 months, did you worry whether your food would run out before you got money to buy more?: Never true Do you have trouble paying for medicines?: No Do you have trouble getting transportation to medical appointments?: No Do you have trouble paying your heating and electricity bill?: No Do you have trouble taking care of your child, family member or friend?: No Do you have trouble with day-to-day activities such as bathing, preparing meals, shopping, managing finances, etc.?: No Are you currently unemployed and looking for a job?: No Are you interested in more education?: No Please select the resources that you would like help with: None Currently or been in a relationship where the following occur: No concerns reported THRIVE Score: 0 AUDIT C Alcohol Use Questionnaire (AUDIT-C) 1. How often do you have a drink containing alcohol?: 2-3 times a week 2. How many drinks containing alcohol do you have on a typical day when you are drinking?: 5 or 6 3. How often do you have six or more drinks on one occasion?: Never Total Score: 5 Score Reviewed/Action Taken: Yes LAURA-7 AMB Questionnaire LAURA-7 Date LAURA - 7 assessed: 02/21/25 Feeling nervous, anxious, or on edge: 0 = Not at all Not being able to stop or control worryin = Several days Worrying too much about different things: 1 = Several days Trouble relaxin = Not at all Being so restless that it is hard to sit still: 0 = Not at all Becoming easily annoyed or irritable: 0 = Not at all Feeling afraid as if something awful might happen: 0 = Not at all Total LAURA-7 score (0-4 normal; 5-9 mild; 10-14 moderate; 15-21 severe): 2 Source: Developed by Drs. Alonzo Ayoub, Denice Lay, Chucho Patiño and colleagues, with an educational gurmeet from [employer]. LAURA-7 Assessment Billing LAURA-7 Assessment Tool: LAURA-7 Assessment 55915 Review of Systems Const Denies body aches, Denies chills, Denies excessive sweating, Denies fatigue, Denies fever(s) and Denies headache(s) Eyes Denies blurry vision ENT Denies dysphagia, Denies vertigo, Denies dizziness, Denies headache(s), Denies hearing loss and Denies tinnitus Card Denies chest pain, Denies chest pain with activity, Denies syncope, Denies irregular heart rhythm and Denies dyspnea Resp Denies chest congestion, Denies cough, Denies hemoptysis, Denies dyspnea and Denies wheezing GI Denies abdominal pain, Denies melena, Denies hematochezia, Denies coffee ground emesis, Denies dysphagia, Denies diarrhea, Denies nausea and Denies vomiting Denies difficulty urinating, Denies dysuria, Denies urinary frequency, Denies urinary hesitancy and Denies urinary urgency Musc Denies arthralgias, Denies limited range of motion, Denies muscle cramps and Denies muscle weakness Skin/Breast Denies rash and Denies skin ulcer Neuro Denies Abnormal speech present, Denies confusion, Denies vertigo, Denies dizziness, Denies syncope, Denies headache(s), Denies memory loss and Denies seizure-like activity Psych Denies anxiety, Denies confusion, Denies depression, Denies memory loss, Denies panic attacks and Denies paranoia Endo Denies excessive sweating, Denies fatigue, Denies flushing, Denies polydipsia and Denies polyuria Aller/Immun Denies wheezing Physical exam (Primary Care) Vital Signs: Last Vital Signs Temp 97.1 F 02/21/25 08:26 Pulse 71 02/21/25 08:26 Resp 18 02/21/25 08:26 BP 124/82 02/21/25 08:26 Pulse Ox 97 02/21/25 08:26 Oxygen Delivery Method Room Air 02/21/25 08:26 BMI result Body Mass Index 37.5 BMI Assessment/Plan discussion: High BMI High, discussed plan: lifestyle, weight reduction, dietary and physical activity Tobacco/Smoking Status: Tobacco use Status Tobacco use date assessed 02/21/25 02/21/25 08:34 Patient Tobacco Use Status Never used Tobacco 02/21/25 08:34 e-Cigarette/Vaping Use Never Used 02/21/25 08:34 PHQ-9: PHQ-9 Score PHQ-9: Total score 0 02/21/25 08:34 Depression Screening Interpretation: Negative Thrive Assessment: Date of Thrive Assessment Date Thrive assessed 02/21/25 02/21/25 08:34 Currently or been in a relationship where the following occur: No concerns reported Const General: cooperative, comfortable, no acute distress, alert and awake; No confusion Orientation/consciousness: oriented to person, oriented to place, patient oriented x3 and No confusion HENMT Head: Yes normocephalic Ears: external ears normal and TM's normal bilaterally Face and sinus: No sinus tenderness Mouth: Normal oral and palatal mucosa present and tongue normal Teeth and gingiva: dentition normal and gingiva normal Throat: Yes posterior oropharynx normal, Yes tonsils normal and Yes uvula midline Eyes Conjunctivae: conjunctivae normal Sclerae: sclerae normal Pupils: Equal, round and reactive pupils present EOM: EOMs intact bilaterally Direct Ophthalmoscopy: No no photophobia Neck Neck: Yes no lymphadenopathy, No tender and Yes no JVD Thyroid: Thyroid normal Carotids: no bruits Chest Chest palpation & inspection: no tenderness Resp Effort & Inspection: normal respiratory effort, no audible wheezes, not labored and no stridor Auscultation: no crackles, no rales, no rhonchi and no wheezes Cardio Jugular venous distension: no JVD Rate: regular rate, not bradycardic and not tachycardic Rhythm: regular rhythm Bruits: no carotid bruits Peripheral pulses: Peripheral pulses 2+ throughout GI Inspection: Yes normal to inspection, No abdominal wall ecchymosis and No visible herniation Palpation (GI): Soft to palpation, nontender, no guarding, not rigid and No hepatosplenomegaly present Auscultation: normoactive bowel sounds General: Yes no CVA tenderness Back/Spine/Pelvis Back: no CVA tenderness and No back tenderness Cervical Spine: cervical ROM normal Thoracic/Lumbar Spine: thoracic and lumbar spine normal to inspection, straight leg raise negative bilaterally, No thoraco-lumbar ROM limited and No lumbar spinal tenderness Skin Lesions: no lesions Rashes: no rashes Wounds: no wounds Neuro General: oriented to person, oriented to place, patient oriented x3, CN's II-XI intact bilaterally and No confusion Cranial nerves: Yes Equal, round and reactive pupils present and Yes Normal accommodation reflex present Cognition (Neuro): normal cognition Speech: No Abnormal speech present Gait exam (Neuro): Normal gait present Motor exam (neuro): 5/5 motor strength present throughout Extrem Right upper extremity: full ROM; no cyanosis Left upper extremity: full ROM; no cyanosis Right lower extremity: no edema Left lower extremity: no edema Psych Appearance: grossly normal Mental Status: mental status grossly normal Affect: normal affect Attitude: cooperative Thought process: Normal thought process present Coding Level of Care Code Est Pt Prev Care 40-64y(17097) Diagnoses Annual physical exam Z00.00 Plantar fasciitis of left foot M72.2 Class 2 obesity E66.812 Lumbar muscle pain M79.18 Psoriasis L40.9 Mixed hyperlipidemia E78.2 Hyperlipidemia type: mixed hyperlipidemia Screening for colorectal cancer Z12.11; Z12.12 Additional Codes LAURA-7 Assessment Billing - LAURA-7 Assessment Tool: LAURA-7 Assessment 88012 ([id number]) PHQ-9 - 87515 - PHQ-9 Billing: Yes ([id number]) Assessment & Plan Assessment & Plan (1) Annual physical exam: Code(s): Z00.00 - Encounter for general adult medical examination without abnormal findings Category: Medical Plan: as per HPI (2) Plantar fasciitis of left foot: Code(s): M72.2 - Plantar fascial fibromatosis Category: Medical Plan: Has a history of left foot plantar fasciitis, he would like to be reconnected with a working manager for further treatments. (3) Class 2 obesity: Code(s): E66.812 - Obesity, class 2 Category: Medical Plan: Patient does understand his BMI is over 35 and will work on being more physically active and adapting to better eating habits to reduce his weight. (4) Lumbar muscle pain: Code(s): M79.18 - Myalgia, other site Category: Medical Plan: He reports having right lower back pain from time to time, he does work in construction. He usually reports a day of rest resolved his symptoms. (5) Psoriasis: Code(s): L40.9 - Psoriasis, unspecified Category: Medical Plan: Patient has signs symptoms consistent with psoriasis. Will supply patient with a topical steroid to place on affected areas to reduce itch in inflammation. (6) HLD (hyperlipidemia): Code(s): E78.5 - Hyperlipidemia, unspecified Category: Medical Qualifiers: Hyperlipidemia type: mixed hyperlipidemia Qualified Code(s): E78.2 - Mixed hyperlipidemia Plan: Patient has a history of elevated cholesterol. Will repeat fasting lipid panel to ensure stable total cholesterol and LDL. We have tried statin therapy in the past though caused on tolerable lower leg cramps. He will try fish oil and dietary modifications to reduce his cholesterol. Goal LDL is to be below 130 (7) Screening for colorectal cancer: Code(s): Z12.11 - Encounter for screening for malignant neoplasm of colon; Z12.12 - Encounter for screening for malignant neoplasm of rectum Category: Medical Plan: Patient is in need of a repeat screening colonoscopy. Orders: Orders Complete Blood Count no Diff Today E78.2 - Mixed hyperlipidemia Comprehensive [place]. Panel Fast Today E78.2 - Mixed hyperlipidemia Lipid Panel Today E78.2 - Mixed hyperlipidemia Prostate Specific Antigen Scr Today E78.2 - Mixed hyperlipidemia, Z12.5 - Encounter for screening for malignant neoplasm of prostate Referrals Podiatry Referral M72.2 - Plantar fascial fibromatosis Gastroenterology Referral Z12.11 - Encounter for screening for malignant neoplasm of colon, Z12.12 - Encounter for screening for malignant neoplasm of rectum Medications: New mometasone 0.1% 1 appl topical DAILY 4 weeks PRN 45 grams 1RF skin irritation L40.9 - Psoriasis, unspecified
--- OUTSIDE RECORDS SUMMARY | 2025-02-21 08:33 | XMS_ITS | Patient Health Record ---
Author Organization [facility] Address [address] [place] [address] Care Team Providers Care Rn Field Name Role Phone Sheba (RETIRED) Adalberto KENT Primary Care Provide r Clovis Soni Jr Unavailable [phone] Reason For Referral No Information Medications Medication SIG (Take, Route, Fr equency, Duration) Notes Start Date End Date Status MoviPrep 100 GM as directed before c olonoscopy Orally for 1 dose 12/20/2014 Active Problems Problem Type SNOMED Code ICD Code Onset Dates Problem Status W/U Status Risk Notes Problem [id number] Colon cancer screening (V76.51) Active confirmed Plan Of Treatment Future Test Test Name Order Date COLONOSCOPY 12/20/2014 Insurance Providers Payer Name Payer Address Payer Phone Subscriber Number Group Number Insured Name Patient Relationship to Insured Coverage Start Date Coverage End Date [facility] [address] [place] [phone] [id number] DIONNA SNELL Self - patient is the insured Medical (General) History Medical History History ICD Code Denies [place],DM,CVA,Lung disease,renal dise ase
== END 2025-02-21 09:13 | disposition home or self-care (01) ==
LOC: HO.HMCH 08:23
PROVIDERS: PCP Physician Assistant; Visit Provider Physician Assistant
DX: Z00.00 Encounter for general adult medical examination without abnormal findings (principal); M72.2 Plantar fascial fibromatosis; E66.812 Obesity, class 2; Z68.37 Body mass index [BMI] 37.0-37.9, adult; M79.18 Myalgia, other site; L40.9 Psoriasis, unspecified; E78.2 Mixed hyperlipidemia; Z12.11 Encounter for screening for malignant neoplasm of colon; Z12.12 Encounter for screening for malignant neoplasm of rectum

== ENCOUNTER → 2025-02-21 08:22 | Outpatient (BNVA) | payer OTHER, SELFPAY | PROVIDERS: PCP Physician Assistant; Visit Provider Physician Assistant | DX: Z00.00 Encounter for general adult medical examination without abnormal findings (principal); M54.50 Low back pain, unspecified; E66.9 Obesity, unspecified; M72.2 Plantar fascial fibromatosis; E66.812 Obesity, class 2; M79.18 Myalgia, other site; L40.9 Psoriasis, unspecified; E78.2 Mixed hyperlipidemia; Z68.37 Body mass index [BMI] 37.0-37.9, adult | CPT/HCPCS: 96127 ==

== ENCOUNTER 2025-02-27 12:44 | Outpatient (REF) | payer OTHER, SELFPAY ==
--- OUTSIDE RECORDS SUMMARY | 2025-02-27 14:25 | XMS_ITS | Patient Health Record ---
Author Organization [facility] Address [address] [place] [address] Care Team Providers Care Sushi Chef Name Role Phone Zheng Fernandez Primary Care Provider Unavailab Clovis Medina Jr Unavailable Reason For Referral No Information Medications Medication SIG (Take, Route, Fr equency, Duration) Notes Start Date End Date Status MoviPrep 100 GM as directed before c olonoscopy Orally for 1 dose 12/20/2014 Active Problems Problem Type SNOMED Code ICD Code Onset Dates Problem Status W/U Status Risk Notes Problem [id number] Colon cancer screening (V76.51) Active confirmed Plan Of Treatment Future Test Test Name Order Date COLONOSCOPY 12/20/2014 Next Appt Details Provider Name:Clovis gunderson Jr, 06/11/2025 10:40:00 AM, [address], [address], [place], [address], Insurance Providers Payer Name Payer Address Payer Phone Subscriber Number Group Number Insured Name Patient Relationship to Insured Coverage Start Date Coverage End Date [facility] [address] [place] [phone] [id number] DIONNA SNELL Self - patient is the insured Medical (General) History Medical History History ICD Code Denies [place],DM,CVA,Lung disease,renal dise ase
[2025-02-27 16:24] LABS: Hemoglobin 16.1 g/dl (14.0-18.0); Mean Corpuscular Hemoglobin 31.7 pg (27.0-33.0); Mean Corpuscular Volume 90.6 fL (80.0-98.0); Mean Platelet Volume 10.1 fL (9.4-12.4); Platelet Count 224 X10*3/uL (160-400); Red Blood Count 5.08 X10*6/uL (4.60-5.80); Red Cell Distribution Width 13.1 % (11.0-16.0); White Blood Count 7.5 X10*3/uL (4.8-10.8)
[2025-02-27 17:36] LABS: Alanine Aminotransferase 19 U/L (0-40); Albumin Level 4.3 g/dL (3.5-5.0); Alkaline Phosphatase 87 U/L (39-117); Anion Gap 9 (12-20); Aspartate Amino Transferase 23 U/L (5-37); Bilirubin Total 0.8 mg/dL (0.0-1.0); Blood Urea Nitrogen 11 mg/dL (9-16); Calcium 9.2 mg/dL (8.4-10.2); Carbon Dioxide 25 mmol/L (22-29); Chloride 110 mmol/L (96-108); Cholesterol 238 mg/dL (<200); Estimated Glomerular Filt Rate > 60; Glucose Fasting 105 mg/dL (60-99); HDL Cholesterol 48 mg/dL (>40); LDL Cholesterol Calculated 167 mg/dL (<100); Sodium 140 mmol/L (135-145); Total Protein 6.8 g/dL (6.5-8.0); Triglycerides 117 mg/dL (<150)
[2025-02-27 17:54] LABS: Prostate Specific Antigen Scr 2.64 ng/mL (<0.05-4.0)
== END 2025-02-27 12:45 | disposition home or self-care (01) ==
LOC: HO.HMGCLDS 12:44
PROVIDERS: PCP Physician Assistant; Visit Provider Physician Assistant
DX: E78.2 Mixed hyperlipidemia (principal); Z12.5 Encounter for screening for malignant neoplasm of prostate
CPT/HCPCS: 36415; 80053; 80061; 84153; 85027

== ENCOUNTER 2025-03-05 13:56 | Outpatient (REF) | payer OTHER, SELFPAY ==
[2025-03-05 16:32] LABS: Urine Cytology See Pathology rpt
== END 2025-03-05 13:57 | disposition home or self-care (01) ==
LOC: HO.LAB 13:56
PROVIDERS: PCP Physician Assistant; Visit Provider Urology
DX: R31.9 Hematuria, unspecified (principal)
CPT/HCPCS: 88112

== ENCOUNTER 2025-03-05 13:56 | Outpatient (AMB) | payer OTHER, SELFPAY ==
--- NOTE | 2025-03-05 13:58 | A.OFFVIS_ITS ---
Intake Visit Reasons: 10m/PSA Intake Note: Patient is present for 10m/PSA * 02/27 PSA: 2.64 Urology Medication:NONE Antibiotic Allergy:NONE Blood Thinner:NONE Deck Builder Required: No Allergies No Known Allergies (No Known Allergies*) Allergy (Verified 03/05/25 14:07) Medication List - Last Reconciled 03/06/25 by Scarlett Peck MD mometasone 0.1% 1 appl topical DAILY PRN 4 weeks HPI Comments Details: 03/05/25-- History of Present Illness - The patient is a 59-year-old male presenting for evaluation of PSA levels and follow-up on previous genitourinary surgery. - History of right spermatocelectomy performed last year. - PSA level was 2.64 on 02/27/25 within the normal range - Trace hematuria noted in the UA. - Family history significant for kidney cancer, with multiple relatives affected, including the patient's father and brother. Results - PSA level: 2.64 - 02/27/25 - Urinalysis: Trace hematuria Discussion Notes I discussed with the patient the normal PSA level of 2.64, which is within the acceptable range. We reviewed the trace hematuria found in the urine analysis and the significance of his family history of kidney cancer. I recommended further imaging with a CAT scan to evaluate the kidneys and a cystoscopy to examine the bladder. 05/04/24--S/P spermatocelectomy, 01/25/24, no complaints. FH - father kidney cancer, FU renal US-04/10/24 kidneys WNL. PSA screening. Review of chart: 03/01/24--Initial clinical diagnosis hydrocele. S/P spermatocelectomy, 01/25/24, exam scrotum well healed. Cyst fluid sent form the OR. Patient had seen pain initially postop but is feeling good now. Has had pain in the lower thigh which is likely groin strain. He states his father had kidney cancer. Will check a renal ultrasound telehealth follow-up. Reviewed PSA 10/28/2023--1.88 12/16/23--Jayesh is a very pleasant 58-year-old male patient of Dr. Fernandez who was accompanied by his at today's office visit. He presents to the office today as a new patient for bilateral hydroceles. In discussion with the patient today he reports having had a vasectomy over 20 years ago that was complicated and feels ever since this procedure he has had testicular/scrotal issues. He reports noting increase in scrotal size over the last 5 years. He reports having followed up with his PCP at which time a scrotal ultrasound was ordered and performed. These results reviewed with the patient today. Large right hydrocele with septation and debris and small left hydrocele. In assessme nt of the patient today large right-sided hydrocele noted. The penis is circumcised. No open areas, lesions, drainage or redness noted. He otherwise denies any bothersome urinary issues or concerns. He reports be happy with current voiding parameters. In office urinalysis results reviewed with the patient today. He denies urinary urgency, urinary frequency, incontinence, nocturia, hematuria, dysuria, foul smelling urine, changes to urinary stream, flank pain, fever, and or chills. [facility] Surgical History History of total right knee replacement Status post LASIK surgery History of vasectomy Status post excision of lipoma Family History Father Lung cancer Smoker Mother Diabetes Lung cancer Brother In good health Renal carcinoma Hemochromatosis Sister In good health Hemochromatosis Son In good health Brother Heart problem Brother Cancer Social History Housing: House Alcohol intake: current Alcohol intake frequency: a few times a month Alcohol type: beer Patient Tobacco Use Status: Never used Tobacco e-Cigarette/Vaping Use: Never Used Second Hand Smoke Exposure: No service: No Current occupational status: employed Current occupation: self employed- [employer] Cognitive needs: No Hearing needs: No Vision needs: No Review of Systems Const All systems reviewed & are unremarkable except as noted in HPI and below Reports no additional complaints Eyes Reports no additional complaints ENT Reports no additional complaints Card Reports no additional complaints Resp Reports no additional complaints GI Reports no additional complaints Reports as per HPI Musc Reports no additional complaints Skin/Breast Reports system reviewed and no additional complaints, except as documented Neuro Reports no additional complaints Psych Reports no additional complaints Endo Reports no additional complaints Bentley/Lymph Reports no additional complaints Aller/Immun Reports no additional complaints Assessment & Plan Assessment & Plan (1) Hematuria: Code(s): R31.9 - Hematuria, unspecified Category: Medical (2) Screening PSA (prostate specific antigen): Code(s): Z12.5 - Encounter for screening for malignant neoplasm of prostate Category: Medical (3) Family history of kidney cancer: Code(s): Z80.51 - Family history of malignant neoplasm of kidney Category: Medical Plan Plan - Order a CAT scan to evaluate the kidneys for any abnormalities, given the family history of kidney cancer. - Schedule a cystoscopy to examine the bladder for potential issues related to trace hematuria. - Monitor PSA levels regularly to ensure they remain within the normal range. Orders: Orders CT urogram 03/05/25 R31.9 - Hematuria, unspecified Urine Cytology 03/05/25 R31.9 - Hematuria, unspecified Patient Instructions: The patient had an opportunity to ask questions regarding treatment plan. The patient expressed understanding and agreement with the above treatment plan. The patient is aware they should contact our office by phone for worsening of their current condition or the appearance of new symptoms. Compliance is encouraged with any medications and followup testing that is ordered. It is a privilege to be allowed the opportunity to participate in the urologic care of your patient. If you have any questions or concerns regarding treatment for the above conditions please do not hesitate to contact me. The office telephone contact is [phone]. This note is constructed in part using voice recognition software. While every effort has been made to ensure accuracy laborer filter plant errors may have been included. Yours sincerely, Scarlett Peck MD Scribe Plan - Not visible on output: Patient was informed and verbally consented to the use of an ambient scribe for clinic note documentation during this visit. Coding Level of Care Code Est Pt Level 4 (39374) Complex EM visit Add On G2211 Diagnoses Hematuria R31.9 Screening PSA (prostate specific antigen) Z12.5 Family history of kidney cancer Z80.51
--- OUTSIDE RECORDS SUMMARY | 2025-03-05 15:30 | XMS_ITS | Patient Health Record ---
Author Organization [facility] Address [address] [place] [address] Care Team Providers Care Speech Communication Professor Name Role Phone Zheng Fernandez Primary Care Provider Unavailab Clovis Medina Jr Unavailable [phone] Reason For Referral No Information Medications Medication SIG (Take, Route, Fr equency, Duration) Notes Start Date End Date Status MoviPrep 100 GM as directed before c olonoscopy Orally for 1 dose 12/20/2014 Active Problems Problem Type SNOMED Code ICD Code Onset Dates Problem Status W/U Status Risk Notes Problem [id number] Colon cancer screening (V76.51) Active confirmed Plan Of Treatment Future Test Test Name Order Date COLONOSCOPY 12/20/2014 Next Appt Details Provider Name:Clovis gunderson Jr, 06/11/2025 10:40:00 AM, [address], [address], [place], [address], Insurance Providers Payer Name Payer Address Payer Phone Subscriber Number Group Number Insured Name Patient Relationship to Insured Coverage Start Date Coverage End Date [facility] [address] [place] [phone] [id number] DIONNA SNELL Self - patient is the insured Medical (General) History Medical History History ICD Code Denies ID,DM,CVA,Lung disease,renal dise ase
== END 2025-03-05 14:28 | disposition home or self-care (01) ==
LOC: HO.HUSH 13:57
PROVIDERS: PCP Physician Assistant; Visit Provider Urology
DX: R31.9 Hematuria, unspecified (principal); Z12.5 Encounter for screening for malignant neoplasm of prostate; Z80.51 Family history of malignant neoplasm of kidney
CPT/HCPCS: 99214; G2211

== ENCOUNTER 2025-03-26 10:44 | Outpatient (REF) | payer OTHER, SELFPAY ==
--- OUTSIDE RECORDS SUMMARY | 2025-03-26 11:40 | XMS_ITS | Patient Health Record ---
Author Organization [facility] Address [address] [place] [address] Care Team Providers Care Health Benefits Specialist Name Role Phone Zheng Fernandez Primary Care Provider Unavailab Clovis Medina Jr Unavailable Reason For Referral No Information Medications Medication SIG (Take, Route, Fr equency, Duration) Notes Start Date End Date Status MoviPrep 100 GM as directed before c olonoscopy Orally for 1 dose 12/20/2014 Active Problems Problem Type SNOMED Code ICD Code Onset Dates Problem Status W/U Status Risk Notes Problem [id number] Colon cancer screening (V76.51) Active confirmed Plan Of Treatment Future Test Test Name Order Date COLONOSCOPY 12/20/2014 Next Appt Details Provider Name:Clovis gunderson Jr, 06/11/2025 10:40:00 AM, [address], [address], [place], [address], Insurance Providers Payer Name Payer Address Payer Phone Subscriber Number Group Number Insured Name Patient Relationship to Insured Coverage Start Date Coverage End Date [facility] [address] [place] [phone] [id number] DIONNA SNELL Self - patient is the insured Medical (General) History Medical History History ICD Code Denies NE,DM,CVA,Lung disease,renal dise ase
--- OUTSIDE RECORDS SUMMARY | 2025-03-26 11:40 | XMS_ITS | Clinical Summary ---
Author Organization [address] Address [address] [place] [phone] Phone Care Team Providers Care Gluer And Wedger Name Role Phone Zheng Fernandez Primary Care Provider Social History Tobacco Use Types Packs/Day Years Used Date Smoking Tobacco: Never Assessed Sex and Gender Information Value Date Recorded Sex Assigned at Not on file Legal Sex Male 12:52 PM EDT Gender Identity Not on file Sexual Orientation Not on file Plan of Treatment Upcoming Encounters Date Type Department Care Team (Late st Contact Info) Description 05/17/2025 8:45 AM EDT Consult Orthopedic Surgery - [place] [id number] [phone] Melo Cartagena, TAMMY [address] [address] Health Maintenance Due Date Last Done Comments Pneumococcal Vaccine: 50+ Years (1 of 1 - PCV) 2013 Zoster Vaccines (1 of 2) 2013 COVID-19 Vaccine (3 - 2023-2 5 season) 2024 01/27/2021, 12/30/2020 Colorectal Cancer Screening: Colonoscopy 02/16/2025 Depression Screening 02/16/2025 HIV Screening 02/16/2025 Hepatitis C Screening 02/16/2025 Social Influencers of Health Screening 02/16/2025 Influenza Vaccine (#1) 2025 09/18/2020 Cholesterol Screening (Lipid Panel) 02/16/2030 02/16/2025 DTaP,Tdap,and Td Vaccines (2 - Td or Tdap) 10/28/2033 10/28/2023 RSV Immunization Adult Patients (1 - 1-dose 75+ series) 2038 HIB Vaccines Aged Out No longer eligi ble based on patient's age to complete this topic HPV Vaccines Aged Out No longer eligi ble based on patient's age to complete this topic Hepatitis A Vaccines Aged Out No long er eligible based on patient's age to complete this topic Hepatitis B Vaccines Aged Out No long er eligible based on patient's age to complete this topic IPV Vaccines Aged Out No longer eligi ble based on patient's age to complete this topic MMR Vaccines Aged Out No longer eligi ble based on patient's age to complete this topic Meningococcal ACWY Vaccine Aged Out N o longer eligible based on patient's age to complete this topic Meningococcal B Vaccine Aged Out No l onger eligible based on patient's age to complete this topic RSV Immunization Patients Under 20 months Aged Out No longer eligible b ased on patient's age to complete this topic Varicella Vaccines Aged Out No longer eligible based on patient's age to complete this topic Procedures Procedure Name Priority Date/Time Associated Diagnosis Comments LIPID PANEL WITH REFLEX TO DIRECT LDL Routine 02/16/2025 1:06 PM EDT Special screening for malignant neoplasm of prostate Mixed hyperlipidemia COMPREHENSIVE METABOLIC PANEL Routine 02/16/2025 1:06 PM EDT Special screening for malignant neoplasm of prostate Mixed hyperlipidemia COMPLETE BLOOD COUNT Routine 02/16/2025 1:06 PM EDT Special screening for malignant neoplasm of prostate Mixed hyperlipidemia PROSTATE SPECIFIC ANTIGEN SCREEN Routine 02/16/2025 1:06 PM EDT Special screening for malignant neoplasm of prostate Mixed hyperlipidemia from Last 3 Months Results * Prostate specific antigen screen (02/16/2025 1:06 PM EDT) PSA 2.53 0.00 - 4.00 ng/mL LAB CHEMISTRY METHOD 02/16/2025 5:47 PM EDT [facility] Blood Venous blood specimen / Unknown Venipuncture / Unknown 02/16/2025 1:06 PM EDT 02/16/2025 1:06 PM EDT Narrative [facility] - 02/16/2025 5:47 PM EDT The Siemens Advia Centaur Chemiluminescent Immunoassay is used. Results obtained with different assay methods or kits cannot be used interchangeably. Results cannot be interpreted as absolute evidence of the presence or absence of malignant disease. us Zheng STANLEY LAB BLOOD ORDERABLES Final Result [facility] [address] [place] [address], [place] [phone] * (ABNORMAL) Lipid panel with reflex to direct LDL (02/16/2025 1:06 PM EDT) Cholesterol 209(H) 0 - 200 mg/dL LAB CHEMISTRY METHOD 02/16/2025 5:22 PM EDT [facility] Triglycerides 91 0 - 150 mg/dL LAB CHEMISTRY METHOD 02/16/2025 5:22 PM EDT [facility] HDL 57 >=40 mg/dL LAB CHEMISTRY METHOD 02/16/2025 5:22 PM EDT [facility] LDL Calculated 134(H) 0 - 100 mg/dL LAB CHEMISTRY METHOD 02/16/2025 5:22 PM EDT [facility] VLDL Cholesterol Wander 18.2 mg/dL LAB CHEMISTRY METHOD 02/16/2025 5:22 PM EDT [facility] Non HDL Chol. (LDL+VLDL) 152(H) <145 mg/dL LAB CHEMISTRY METHOD 02/16/2025 5:22 PM EDT [facility] Chol/HDL Ratio 3.7 0.0 - 4.4 LAB CHEMISTRY METHOD 02/16/2025 5:22 PM EDT [facility] Blood Venous blood specimen / Unknown Venipuncture / Unknown 02/16/2025 1:06 PM EDT 02/16/2025 1:06 PM EDT us Zheng STANLEY LAB BLOOD ORDERABLES Final Result [facility] [address] [place] [address], * Complete blood count (02/16/2025 1:06 PM EDT) WBC 7.3 4.8 - 10.8 K/mcL LAB HEMETOLOGY METHOD 02/16/2025 4:40 PM EDT [facility] RBC 5.10 4.50 - 5.50 M/mcL LAB HEMETOLOGY METHOD 02/16/2025 4:40 PM EDT [facility] Hemoglobin 16.0 13.5 - 17.5 g/dL LAB HEMETOLOGY METHOD 02/16/2025 4:40 PM EDT [facility] Hematocrit 46.3 42.0 - 54.0 % LAB HEMETOLOGY METHOD 02/16/2025 4:40 PM EDT [facility] MCV 91.5 79.0 - 98.0 FL LAB HEMETOLOGY METHOD 02/16/2025 4:40 PM EDT [facility] MCH 31.6 27.0 - 32.0 pcg LAB HEMETOLOGY METHOD 02/16/2025 4:40 PM EDT [facility] MCHC 34.6 32.0 - 37.0 g/dL LAB HEMETOLOGY METHOD 02/16/2025 4:40 PM EDT [facility] RDW 13.2 11.0 - 15.0 % LAB HEMETOLOGY METHOD 02/16/2025 4:40 PM EDT [facility] Platelets 244 130 - 400 K/mcL LAB HEMETOLOGY METHOD 02/16/2025 4:40 PM EDT [facility] MPV 10.6 7.0 - 11.0 FL LAB HEMETOLOGY METHOD 02/16/2025 4:40 PM EDT [facility] NRBC 0.0 <1.0 % LAB HEMETOLOGY METHOD 02/16/2025 4:40 PM EDT [facility] NRBC Absolute 0.00 <0.10 K/mcL LAB HEMETOLOGY METHOD 02/16/2025 4:40 PM T [facility] Blood Venous blood specimen / Unknown Venipuncture / Unknown 02/16/2025 1:06 PM EDT 02/16/2025 1:06 PM EDT us Zheng STANLEY LAB BLOOD ORDERABLES Final Result [facility] [address] [place] [address], [place] [phone] * (ABNORMAL) Comprehensive metabolic panel (02/16/2025 1:06 PM EDT) Sodium 145 133 - 145 mmol/L LAB CHEMISTRY METHOD 02/16/2025 5:22 PM [facility] Potassium 3.9 3.5 - 5.5 mmol/L LAB CHEMISTRY METHOD 02/16/2025 5:22 PM [facility] Chloride 112(H) 96 - 110 mmol/L LAB CHEMISTRY METHOD 02/16/2025 5:22 PM [facility] CO2 26 21 - 32 mmol/L LAB CHEMISTRY METHOD 02/16/2025 5:22 PM [facility] Anion Gap 7 3 - 11 LAB CHEMISTRY METHOD 02/16/2025 5:22 PM [facility] Glucose 109(H) 70 - 100 mg/dL LAB CHEMISTRY METHOD 02/16/2025 5:22 PM [facility] BUN 12 5 - 25 mg/dL LAB CHEMISTRY METHOD 02/16/2025 5:22 PM [facility] Creatinine 0.98 0.70 - 1.30 mg/dL LAB CHEMISTRY METHOD 02/16/2025 5:22 PM [facility] eGFR 88 >=60 mL/min/1. 73m2 LAB CHEMISTRY METHOD 02/16/2025 5:22 PM [facility] Comment:Calculation based on the Chronic Kidney Disease Epidemiology Collaboration (CKD-EPI) equation refit without adjustment for race. BUN/Creatinine Ratio 12.2 LAB CHEMISTRY METHOD 02/16/2025 5:22 PM [facility] Calcium 8.8 8.5 - 10.5 mg/dL LAB CHEMISTRY METHOD 02/16/2025 5:22 PM [facility] AST (SGOT) 16 10 - 42 unit/L LAB CHEMISTRY METHOD 02/16/2025 5:22 PM [facility] ALT (SGPT) 25 10 - 60 unit/L LAB CHEMISTRY METHOD 02/16/2025 5:22 PM [facility] Alkaline Phosphatase 97 42 - 121 unit/L LAB CHEMISTRY METHOD 02/16/2025 5:22 PM [facility] Total Protein 6.6 6.0 - 8.0 g/dL LAB CHEMISTRY METHOD 02/16/2025 5:22 PM [facility] Albumin 4.0 3.2 - 5.0 g/dL LAB CHEMISTRY METHOD 02/16/2025 5:22 PM [facility] Total Bilirubin 0.9 0.0 - 1.4 mg/dL LAB CHEMISTRY METHOD 02/16/2025 5:22 PM [facility] Blood Venous blood specimen / Unknown Venipuncture / Unknown 02/16/2025 1:06 PM EDT 02/16/2025 1:06 PM EDT us Zheng STANLEY LAB BLOOD ORDERABLES Final Result [facility] [address] [place] [address], from Last 3 Months Insurance [facility] Care Teams Gluer And Wedger Relationship Specialty Start Date End Date Zheng Fernandez PA [address] [place] [id number] PCP - General Physician [place] Gatherer 02/16/25
[2025-03-26 14:43] LABS: PSA,Total (Free>4and<10) 2.43 ng/mL (0.00-4.00)
== END 2025-03-26 10:45 | disposition home or self-care (01) ==
LOC: HO.HMGCLDS 10:44
PROVIDERS: PCP Physician Assistant; Visit Provider Urology
DX: Z12.5 Encounter for screening for malignant neoplasm of prostate (principal)
CPT/HCPCS: 36415; 84153

== ENCOUNTER 2025-04-23 08:50 | Outpatient (REF) | payer OTHER, SELFPAY ==
--- NOTE | ~2025-04-23 | CT_ITS ---
CLINICAL HISTORY: R31.9 - Hematuria, unspecified Exam: CT urogram without and with IV contrast Comparison: None provided Findings: Normal lung bases. Mildly dilated bilateral renal collecting systems and ureters, more conspicuous on the left. Otherwise unremarkable kidneys, ureters and bladder. No urolithiasis, renal or urothelial lesion is identified. Symmetrical contrast excretion of bilateral kidneys. Prostatomegaly, prostate measures 5.3 x 6.0 x 7.3 cm, 121.55 mL, non-specific coarse calcification centrally. Cholelithiasis without acute inflammation. Liver, spleen, pancreas, adrenal glands are unremarkable. Mild diverticulosis of distal colon, negative for acute diverticulitis, remaining GI tract is unremarkable. Normal appendix. Mild atherosclerotic disease. Nonaneurysmal aorta. No adenopathy, ascites or pneumoperitoneum. Small fat containing umbilical hernia without fatty stranding. Degenerative changes of the thoracolumbar spine. Impression: 1. Mildly dilated renal collecting system and ureters bilaterally, uncertain etiology, no urolithiasis. 2. Marked prostatomegaly. 3. Cholelithiasis without acute inflammation. 4. Mild distal colonic diverticulosis. This document has been electronically signed by: Elina Colmenares MD on 04/24/2025 09:34:03
--- OUTSIDE RECORDS SUMMARY | 2025-04-23 09:12 | XMS_ITS | Clinical Summary ---
Author Organization [address] Address [address] [place] [phone] Phone Care Team Providers Care Multimedia Producer Name Role Phone Zheng Fernandez Primary Care [...] Care Team (Late st Contact Info) Description 06/07/2025 9:00 AM EDT Consult Orthopedic Surgery - [place] [id number] [phone] Melo Cartagena, TAMMY [address] [address] Health Maintenance Due Date Last Done Comments Pneumococcal Vaccine: 50+ Years (1 of 1 - PCV) 2013 Zoster Vaccines (1 of 2) 2013 COVID-19 Vaccine (3 - 2023-2 5 season) 2024 01/27/2021, 12/30/2020 Depression Screening 09/13/2024 Colorectal Cancer Screening: Colonoscopy 02/16/2025 HIV Screening 02/16/2025 Hepatitis C Screening [...] LAB CHEMISTRY METHOD 02/16/2025 5:47 PM EDT [facility] Blood Venous blood specimen / Unknown Venipuncture / Unknown 02/16/2025 1:06 PM EDT 02/16/2025 1:06 PM EDT Narrative [facility] - 02/16/2025 5:47 PM EDT The Siemens Advia Centaur Chemiluminescent Immunoassay is used. Results obtained with different assay methods or kits cannot be used interchangeably. Results cannot be interpreted as absolute evidence of the presence or absence of malignant disease. us Zheng STANLEY LAB BLOOD ORDERABLES Final Result [facility] [address] [place] [address], [place] [phone] * (ABNORMAL) Lipid panel with reflex to direct LDL (02/16/2025 1:06 PM EDT) Cholesterol 209(H) 0 - 200 mg/dL LAB CHEMISTRY METHOD 02/16/2025 5:22 PM EDT [facility] Triglycerides 91 0 - 150 mg/dL LAB CHEMISTRY METHOD 02/16/2025 5:22 PM EDT [facility] HDL 57 >=40 mg/dL LAB CHEMISTRY METHOD 02/16/2025 5:22 PM EDT [facility] LDL Calculated 134(H) 0 - 100 mg/dL LAB CHEMISTRY METHOD 02/16/2025 5:22 PM EDT [facility] VLDL Cholesterol Wander 18.2 mg/dL LAB CHEMISTRY METHOD 02/16/2025 5:22 PM EDT [facility] Non HDL Chol. (LDL+VLDL) 152(H) <145 mg/dL LAB CHEMISTRY METHOD 02/16/2025 5:22 PM EDT [facility] Chol/HDL Ratio 3.7 0.0 - 4.4 LAB CHEMISTRY METHOD 02/16/2025 5:22 PM EDT [facility] Blood Venous blood specimen / Unknown Venipuncture / Unknown 02/16/2025 1:06 PM EDT 02/16/2025 1:06 PM EDT us Zheng STANLEY LAB BLOOD ORDERABLES Final Result [facility] [address] [place] [address], * Complete blood count (02/16/2025 1:06 PM EDT) WBC 7.3 4.8 - 10.8 K/mcL LAB HEMETOLOGY METHOD 02/16/2025 4:40 PM EDT [facility] RBC 5.10 4.50 - 5.50 M/mcL LAB HEMETOLOGY METHOD 02/16/2025 4:40 PM EDT [facility] Hemoglobin 16.0 13.5 - 17.5 g/dL LAB HEMETOLOGY METHOD 02/16/2025 4:40 PM EDT [facility] Hematocrit 46.3 42.0 - 54.0 % LAB HEMETOLOGY METHOD 02/16/2025 4:40 PM EDT [facility] MCV 91.5 79.0 - 98.0 FL LAB HEMETOLOGY METHOD 02/16/2025 4:40 PM EDT [facility] MCH 31.6 27.0 - 32.0 pcg LAB HEMETOLOGY METHOD 02/16/2025 4:40 PM EDT [facility] MCHC 34.6 32.0 - 37.0 g/dL LAB HEMETOLOGY METHOD 02/16/2025 4:40 PM EDT [facility] RDW 13.2 11.0 - 15.0 % LAB HEMETOLOGY METHOD 02/16/2025 4:40 PM EDT [facility] Platelets 244 130 - 400 K/mcL LAB HEMETOLOGY METHOD 02/16/2025 4:40 PM EDT [facility] MPV 10.6 7.0 - 11.0 FL LAB HEMETOLOGY METHOD 02/16/2025 4:40 PM EDT [facility] NRBC 0.0 <1.0 % LAB HEMETOLOGY METHOD 02/16/2025 4:40 PM EDT [facility] NRBC Absolute 0.00 <0.10 K/mcL LAB HEMETOLOGY METHOD 02/16/2025 4:40 PM T [facility] Blood Venous blood specimen / Unknown Venipuncture / Unknown 02/16/2025 1:06 PM EDT 02/16/2025 1:06 PM EDT us Zheng STANLEY LAB BLOOD ORDERABLES Final Result [facility] [address] [place] [address], [place] [phone] * (ABNORMAL) Comprehensive metabolic panel (02/16/2025 1:06 PM EDT) Sodium 145 133 - 145 mmol/L LAB CHEMISTRY METHOD 02/16/2025 5:22 PM [facility] Potassium 3.9 3.5 - 5.5 mmol/L LAB CHEMISTRY METHOD 02/16/2025 5:22 PM [facility] Chloride 112(H) 96 - 110 mmol/L LAB CHEMISTRY METHOD 02/16/2025 5:22 PM [facility] CO2 26 21 - 32 mmol/L LAB CHEMISTRY METHOD 02/16/2025 5:22 PM [facility] Anion Gap 7 3 - 11 LAB CHEMISTRY METHOD 02/16/2025 5:22 PM [facility] Glucose 109(H) 70 - 100 mg/dL LAB CHEMISTRY METHOD 02/16/2025 5:22 PM [facility] BUN 12 5 - 25 mg/dL LAB CHEMISTRY METHOD 02/16/2025 5:22 PM [facility] Creatinine 0.98 0.70 - 1.30 mg/dL LAB CHEMISTRY METHOD 02/16/2025 5:22 PM [facility] eGFR 88 >=60 mL/min/1. 73m2 LAB CHEMISTRY METHOD 02/16/2025 5:22 PM [facility] Comment:Calculation based on the Chronic Kidney Disease Epidemiology Collaboration (CKD-EPI) equation refit without adjustment for race. BUN/Creatinine Ratio 12.2 LAB CHEMISTRY METHOD 02/16/2025 5:22 PM [facility] Calcium 8.8 8.5 - 10.5 mg/dL LAB CHEMISTRY METHOD 02/16/2025 5:22 PM [facility] AST (SGOT) 16 10 - 42 unit/L LAB CHEMISTRY METHOD 02/16/2025 5:22 PM [facility] ALT (SGPT) 25 10 - 60 unit/L LAB CHEMISTRY METHOD 02/16/2025 5:22 PM [facility] Alkaline Phosphatase 97 42 - 121 unit/L LAB CHEMISTRY METHOD 02/16/2025 5:22 PM [facility] Total Protein 6.6 6.0 - 8.0 g/dL LAB CHEMISTRY METHOD 02/16/2025 5:22 PM [facility] Albumin 4.0 3.2 - 5.0 g/dL LAB CHEMISTRY METHOD 02/16/2025 5:22 PM [facility] Total Bilirubin 0.9 0.0 - 1.4 mg/dL LAB CHEMISTRY METHOD 02/16/2025 5:22 PM [facility] Blood Venous blood specimen / Unknown Venipuncture / Unknown 02/16/2025 1:06 PM EDT 02/16/2025 1:06 PM EDT us Zheng STANLEY LAB BLOOD ORDERABLES Final Result [facility] [address] [place] [address], from Last 3 Months Insurance [facility] Care Teams Multimedia Producer Relationship Specialty Start Date End Date Zheng Fernandez PA [address] [place] [id number] PCP - General Physician Personnel Scheduler 02/16/25
--- OUTSIDE RECORDS SUMMARY | 2025-04-23 09:12 | XMS_ITS | Patient Health Record ---
Author Organization [facility] Address [address] [place] [address] Care Team Providers Care Wax Pumper Name Role Phone Zheng Fernandez Primary Care Provider Unavailab Clovis Medina Jr Unavailable [phone] Reason For Referral No Information Medications Medication SIG (Take, Route, Fr equency, Duration) Notes Start Date End Date Status MoviPrep 100 GM as directed before c olonoscopy Orally for 1 dose 12/20/2014 Active Problems Problem Type SNOMED Code ICD Code Onset Dates Problem Status W/U Status Risk Notes Problem [id number] Colon cancer screening (V76.51) Active confirmed Plan Of Treatment Future Test Test Name Order Date COLONOSCOPY 12/20/2014 Next Appt Details Provider Name:Clovis gunderson Jr, 06/11/2025 10:40:00 AM, [address], [address], [place], [address], Insurance Providers Payer Name Payer Address Payer Phone Subscriber Number Group Number Insured Name Patient Relationship to Insured Coverage Start Date Coverage End Date [employer] [address] [place] [phone] [id number] DIONNA SNELL Self - patient is the insured Medical (General) History Medical History History ICD Code Denies [place],DM,CVA,Lung disease,renal dise ase
--- OUTSIDE RECORDS SUMMARY | 2025-04-23 09:12 | XMS_ITS ---
Author Name [facility] Organization Unknown Care Team Organization Name Specialty Phone Email Start Date End Da te [facility] Kanchan Aj Primary Care 01/18/2023 05/01/2024
[2025-04-23 09:21] LABS: Hematocrit 44.7 % (42.0-52.0); Hemoglobin 15.9 g/dl (14.0-18.0); Mean Corpuscular HGB Conc 35.6 g/dl (31.0-36.0); Mean Corpuscular Hemoglobin 32.3 pg (27.0-33.0); Mean Corpuscular Volume 90.9 fL (80.0-98.0); NRBC Abs Auto 0.000 X10*3/uL (0.0-0.012); NRBC Pct Auto 0.0 /100WBC (0.0-0.2); Platelet Count 200 X10*3/uL (160-400); Red Blood Count 4.92 X10*6/uL (4.60-5.80); White Blood Count 6.8 X10*3/uL (4.8-10.8)
[2025-04-23 09:35] LABS: Alanine Aminotransferase 28 U/L (0-40); Albumin Level 4.1 g/dL (3.5-5.0); Alkaline Phosphatase 87 U/L (39-117); Anion Gap 9 (12-20); Aspartate Amino Transferase 21 U/L (5-37); Blood Urea Nitrogen 13 mg/dL (9-16); Calcium 8.6 mg/dL (8.4-10.2); Carbon Dioxide 26 mmol/L (22-29); Chloride 109 mmol/L (96-108); Cholesterol 214 mg/dL (<200); Estimated Glomerular Filt Rate > 60; HDL Cholesterol 41 mg/dL (>40); Potassium 4.1 mmol/L (3.3-5.1); Sodium 140 mmol/L (135-145); Total Protein 6.5 g/dL (6.5-8.0); Triglycerides 180 mg/dL (<150)
[2025-04-23] MEDS: iohexoL 350 MG/ML 100 ML INFUS..BTL 85 ML IV (10:44)
== END 2025-04-23 08:51 | disposition home or self-care (01) ==
LOC: HO.CT 08:50
PROVIDERS: PCP Physician Assistant; Visit Provider Urology
DX: R31.9 Hematuria, unspecified (principal); E78.2 Mixed hyperlipidemia; Z12.5 Encounter for screening for malignant neoplasm of prostate
CPT/HCPCS: 36415; 74178; 80053; 80061; 84153; 85027; Q9967

== ENCOUNTER → 2025-04-23 08:52 | Outpatient (BNV) | payer OTHER, SELFPAY | PROVIDERS: PCP Physician Assistant; Visit Provider Radiology Diagnostic Radiology | DX: N40.1 Benign prostatic hyperplasia with lower urinary tract symptoms (principal) | CPT/HCPCS: 74178 ==

== ENCOUNTER 2025-05-24 13:23 | Outpatient (AMB) | payer OTHER, SELFPAY ==
--- NOTE | 2025-05-24 14:04 | MHC.OFFVIS ---
Intake Visit Reasons: cysto/CT Intake Note: Cystoscopy not performed today see HPI, discussion with patient. Allergies No Known Allergies (No Known Allergies*) Allergy (Verified 03/05/25 14:07) Medication List - Last Reconciled 05/24/25 by Scarlett Peck MD mometasone 0.1% 1 appl topical DAILY PRN 4 weeks HPI Comments Details: 05/24/25--Jayesh is here in follow-up status post CT urogram. Was last seen 03/05/2025 microscopic hematuria noted. Reviewed CT imaging 04/23/25--negative for renal masses, or kidney stones, significant prostatomegaly greater than 100 g, prostatic calcification, nonspecific finding. He denies obstructive voiding symptoms. Review of chart PSA 02/27/25--2.64. At this time no indication for office cystoscopy. We will monitor PSA. Follow-up in 6 months. 03/05/25--- The patient is a 59-year-old male presenting for evaluation of PSA levels and follow-up on previous genitourinary surgery. - History of right spermatocelectomy performed last year. - PSA level was 2.64 on 02/27/25 within the normal range - Trace hematuria noted in the UA. - Family history significant for kidney cancer, with multiple relatives affected, including the patient's father and brother. Results - PSA level: 2.64 - 02/27/25 - Urinalysis: Trace hematuria Discussion Notes I discussed with the patient the normal PSA level of 2.64, which is within the acceptable range. We reviewed the trace hematuria found in the urine analysis and the significance of his family history of kidney cancer. I recommended further imaging with a CAT scan to evaluate the kidneys and a cystoscopy to examine the bladder. 05/04/24--S/P spermatocelectomy, 01/25/24, no complaints. FH - father kidney cancer, FU renal US-04/10/24 kidneys WNL. PSA screening. 03/01/24--Initial clinical diagnosis hydrocele. S/P spermatocelectomy, 01/25/24, exam scrotum well healed. Cyst fluid sent form the OR. Patient had seen pain initially postop but is feeling good now. Has had pain in the lower thigh which is likely groin strain. He states his father had kidney cancer. Will check a renal ultrasound telehealth follow-up. Reviewed PSA 10/28/2023--1.88 12/16/23--Jayesh is a very pleasant 58-year-old male patient of Dr. Fernandez who was accompanied by his at today's office visit. He presents to the office today as a new patient for bilateral hydroceles. In discussion with the patient today he reports having had a vasectomy over 20 years ago that was complicated and feels ever since this procedure he has had testicular/scrotal issues. He reports noting increase in scrotal size over the last 5 years. He reports having followed up with his PCP at which time a scrotal ultrasound was ordered and performed. These results reviewed with the patient today. Large right hydrocele with septation and debris and small left hydrocele. In assessment of the patient today large right-sided hydrocele noted. The penis is circumcised. No open areas, lesions, drainage or redness noted. He otherwise denies any bothersome urinary issues or concerns. He reports be happy with current voiding parameters. In office urinalysis results reviewed with the patient today. He denies urinary urgency, urinary frequency, incontinence, nocturia, hematuria, dysuria, foul smelling urine, changes to urinary stream, flank pain, fever, and or chills. COUNT INCLUDES THE [facility] Surgical History History of total right knee replacement Status post LASIK surgery History of vasectomy Status post excision of lipoma Family History Father Lung cancer Smoker Mother Diabetes Lung cancer Brother In good health Renal carcinoma Hemochromatosis Sister In good health Hemochromatosis Son In good health Brother Heart problem Brother Cancer Social History Housing: House Alcohol intake: current Alcohol intake frequency: a few times a month Alcohol type: beer Patient Tobacco Use Status: Never used Tobacco e-Cigarette/Vaping Use: Never Used Second Hand Smoke Exposure: No service: No Current occupational status: employed Current occupation: self employed- [employer] Cognitive needs: No Hearing needs: No Vision needs: No Review of Systems Const All systems reviewed & are unremarkable except as noted in HPI and below Reports no additional complaints Eyes Reports no additional complaints ENT Reports no additional complaints Card Reports no additional complaints Resp Reports no additional complaints GI Reports no additional complaints Reports as per HPI Musc Reports no additional complaints Skin/Breast Reports system reviewed and no additional complaints, except as documented Neuro Reports no additional complaints Psych Reports no additional complaints Endo Reports no additional complaints Bentley/Lymph Reports no additional complaints Aller/Immun Reports no additional complaints Results Reviewed Results Reviewed: Date of Service: 04/23/25 CLINICAL HISTORY: R31.9 - Hematuria, unspecified Exam: CT urogram without and with IV contrast Comparison: None provided Findings: Normal lung bases. Mildly dilated bilateral renal collecting systems and ureters, more conspicuous on the left. Otherwise unremarkable kidneys, ureters and bladder. No urolithiasis, renal or urothelial lesion is identified. Symmetrical contrast excretion of bilateral kidneys. Prostatomegaly, prostate measures 5.3 x 6.0 x 7.3 cm, 121.55 mL, non-specific coarse calcification centrally. Cholelithiasis without acute inflammation. Liver, spleen, pancreas, adrenal glands are unremarkable. Mild diverticulosis of distal colon, negative for acute diverticulitis, remaining GI tract is unremarkable. Normal appendix. Mild atherosclerotic disease. Nonaneurysmal aorta. No adenopathy, ascites or pneumoperitoneum. Small fat containing umbilical hernia without fatty stranding. Degenerative changes of the thoracolumbar spine. Impression: 1. Mildly dilated renal collecting system and ureters bilaterally, uncertain etiology, no urolithiasis. 2. Marked prostatomegaly. 3. Cholelithiasis without acute inflammation. 4. Mild distal colonic diverticulosis. Date of Service: 04/10/24 EXAMINATION: US RETROPERITONEAL LIMITED (RENAL ONLY) CLINICAL INFORMATION: Family history of malignant neoplasm of kidney. COMPARISON: Renal ultrasound 12/03/2022. X-ray abdomen KUB 11/27/2022. Renal ultrasound 03/13/2019. TECHNIQUE: Real-time imaging of the kidneys. Limited visualization due to bowel gas. FINDINGS: RIGHT KIDNEY: 12.1 x 6.6 x 5.6 cm (SAG x AP x TRV). No hydronephrosis. No renal calculi. Renal cortical thickness is normal. Limited visualization. LEFT KIDNEY: 13.1 x 5.6 x 4.9 cm (SAG x AP x TRV). No hydronephrosis. No renal calculi. Renal cortical thickness is normal. Limited visualization. ADDITIONAL FINDINGS: Incidental note on limited views of the gallbladder of cholelithiasis. Dedicated ultrasound of the abdomen could be considered for further evaluation. IMPRESSION: 1. No hydronephrosis. No renal calculi. Renal cortical thickness is normal. Limited visualization. 2. Incidental note on limited views of the gallbladder of cholelithiasis. Dedicated ultrasound of the abdomen could be considered for further evaluation. Collected: 01/25/24 Location: [facility] Received: 01/26/24 Diagnosis Right hydrocele fluid: No malignancy identified. See comment. Comment: Abundant sperm and few flat sheets of bland epithelioid cells; no features of malignancy are seen. Clinical History Right hydrocele Material Received Right hydrocele fluid Gross Description Received are 40 cc of cloudy, yellow-white fluid from which a ThinPrep slide is prepared. Assessment & Plan Assessment & Plan (1) Screening PSA (prostate specific antigen): Code(s): Z12.5 - Encounter for screening for malignant neoplasm of prostate Category: Medical (2) Family history of kidney cancer: Code(s): Z80.51 - Family history of malignant neoplasm of kidney Category: Medical (3) BPH (benign prostatic hyperplasia): Code(s): N40.0 - Benign prostatic hyperplasia without lower urinary tract symptoms Category: Medical Plan PSA,Total (Free>4and<10) 5 Months Orders: Orders PSA,Total (Free>4and<10) 5 Months N40.0 - Benign prostatic hyperplasia without lower urinary tract symptoms Patient Instructions: The patient had an opportunity to ask questions regarding treatment plan. The patient expressed understanding and agreement with the above treatment plan. The patient is aware they should contact our office by phone for worsening of their current condition or the appearance of new symptoms. Compliance is encouraged with any medications and followup testing that is ordered. It is a privilege to be allowed the opportunity to participate in the urologic care of your patient. If you have any questions or concerns regarding treatment for the above conditions please do not hesitate to contact me. The office telephone contact is [phone]. This note is constructed in part using voice recognition software. While every effort has been made to ensure accuracy metal checker errors may have been included. Yours sincerely, Scarlett Peck MD Coding Level of Care Code Est Pt Level 3 (71180) Diagnoses Screening PSA (prostate specific antigen) Z12.5 Family history of kidney cancer Z80.51 BPH (benign prostatic hyperplasia) N40.0
--- OUTSIDE RECORDS SUMMARY | 2025-05-24 17:22 | XMS_ITS | Patient Health Record ---
Author Organization [facility] Address [address] [place] [address] Care Team Providers Care Air Quality Specialist Name Role Phone Zheng Fernandez Primary Care Provider Unavailab Clovis Medina Jr Unavailable Reason For Referral No Information Medications Medication SIG (Take, Route, Fr equency, Duration) Notes Start Date End Date Status MoviPrep 100 GM as directed before c olonoscopy Orally for 1 dose 12/20/2014 Active Problems Problem Type SNOMED Code ICD Code Onset Dates Problem Status W/U Status Risk Notes Problem [id number] Colon cancer screening (V76.51) Active confirmed Plan Of Treatment Future Test Test Name Order Date COLONOSCOPY 12/20/2014 Next Appt Details Provider Name:Clovis gunderson Jr, 06/11/2025 10:40:00 AM, [address], [address], [place], [address], Insurance Providers Payer Name Payer Address Payer Phone Subscriber Number Group Number Insured Name Patient Relationship to Insured Coverage Start Date Coverage End Date [facility] [address] [place] [phone] [id number] DIONNA SNELL Self - patient is the insured Medical (General) History Medical History History ICD Code Denies [place],DM,CVA,Lung disease,renal dise ase
== END 2025-05-24 14:18 | disposition home or self-care (01) ==
LOC: HO.HUSH 13:23
PROVIDERS: PCP Physician Assistant; Visit Provider Urology
DX: Z12.5 Encounter for screening for malignant neoplasm of prostate (principal); Z80.51 Family history of malignant neoplasm of kidney; N40.0 Benign prostatic hyperplasia without lower urinary tract symptoms
CPT/HCPCS: 99213

== ENCOUNTER 2025-06-26 10:46 | Day surgery (SDC) | payer OTHER, SELFPAY ==
--- OUTSIDE RECORDS SUMMARY | 2025-06-07 09:00 | XMS_ITS | Encounter Summary ---
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 * Consultation (Routine) - Closed Specialty Diagnoses / Procedures Referred By Echo garrison Referred To Contact Podiatry / Orthopaedic Surgery Diagnoses Plantar fascial fibromatosis Zheng Fernandez PA [address] [place] [address] Phone: tel: fax: Melo Cartagena DPM [address] [address] Phone: tel: fax: Referral ID Status Reason Start Date Expiration Date V isits Requested Visits Authorized [id number] Closed Specialty Services Required 02/22/2025 02/22/2026 1 1 Encounter Details Date Type Department Care Team (Late st Contact Info) Description 06/07/2025 9:00 AM EDT Consult Orthopedic Surgery - [place] [address] [address] [facility] [address] [phone] Melo Cartagena DPM 175 [facility] Luis Miguel [address] [place] [id number] Pain in both feet (Primary Dx); Pes planus of both feet; Equinus contracture of left ankle; Plantar fascial fibromatosis Social History Tobacco Use Types Packs/Day Years Used Date Smoking Tobacco: Never Assessed Sex and Gender Information Value Date Recorded Sex Assigned at Not on file Legal Sex Male 12:52 PM EDT Gender Identity Not on file Sexual Orientation Not on file documented as of this encounter Progress Notes * Melo Cartagena DPM - 06/07/2025 9:00 AM EDTAssociated Order(s): Injection tendon or ligament Post-Procedure Diagnose(s): Plantar fascial fibromatosis Referring MD: Zheng Fernandez PA Last PCP visit: 05/07/2025 IDENTIFIER: Zohreh is a 59 y.o. year old male who presents for consultation. CC: Left foot pain HPI: Patient presents today with complaints of heel pain. Patient states that the pain is worse with thefirst step in the morning or after they have been sitting for long periods of time. Patient denies any injury or accidents. Patient cannot recall any inciting events. Patient states that resting or sitting there is no pain, only while weightbearing. Patient has tried over the counter inserts with no improvement. Patient here for evaluation and treatment. ROS: GENERAL: Pt denies nausea, fever, vomiting, chills, or shortness of breath. Pt in NAD. CARDIOLOGY: pt denies chest pain, palpitations LUNGS: pt denies shortness of breath MUSCULOSKELETAL: See HPI, otherwise no joint pain or swelling, back pain, or muscle pain. SKIN: see HPI, otherwise no lesions, rash or itching NEURO: No persistent headache, weakness or numbness The remainder of the review of systems is noncontributory PAST MEDICAL HISTORY: There is no problem list on file for this patient. SOCIAL HISTORY: Social History Tobacco Use Smoking status: Not on file Smokeless tobacco: Not on file Substance Use Topics Alcohol use: Not on file ACTIVE MEDICATIONS: No outpatient medications have been marked as taking for the 06/07/25 encounter (Consult) with Melo Cartagena DPM. ALLERGIES: Patient has no known allergies. PHYSICAL EXAM: There were no vitals taken for this visit. PODIATRIC EXAMINATION: GENERAL: Patient appears well nourished, with NAD. VASCULAR: Dorsalis pedis pulses are 2/4 bilaterally and Posterior tibial pulses are 2/4 bilaterally. Capillary filling time within normal limits the digits. No pallor on elevation or rubor on dependency. Positive hair growth. No varicosities. Denies rest pain or claudication pain. NEUROLOGICAL: Sharp/dull sensation intact, protective sensation intact 10/10 with 5.07 semmes vivi bilaterally, vibratory sensation with tuning fork intact to the tibial tuberosity. ORTHOPEDIC: Good muscle strength 5/5 of all flexors and extensors. Dorsi flexion of ankle ,10 degrees, plantar flexion WNL. No muscle atrophy. Palpation of medial tubercle with fullness and swelling.Notable equinus contracture. Collapse of midfoot to bilateral feet on stance DERMATOLOGICAL:.No masses or skin lesions noted. Normal skin temperature, normal skin turgor. BIOMECHANICS: STJ ROM wnl, MTJ ROM wnl, 1st MPJ ROM wnl. He does not IMPRESSION: 1. Pain in both feet 2. Pes planus of both feet 3. Equinus contracture of left ankle 4. Plantar fascial fibromatosis PLAN: Pt was seen and examined, history reviewed. Patient also has findings of pes planus bilaterally which with a collapsing midfoot due to flexibility Patient's shoes were evaluated and handout was given explaining correct shoe gear that would help in supporting the midfoot Orthotic suggestions were given and the specific model was handed to the patient to be purchased Break-in period was defined and patient was educated on as there can be increased pain in the process of getting used to an orthotic in his shoe Biomechanics were reviewed with patient and how this flexible flatfoot deformity is affecting his ability to walk and causing increased strain on other joints of the foot Patient showed verbal and adequate understanding Patient with findings of bilateral equinus contracture Patients contracture is directly along the tendon's insertion. Patient at this time would benefit from resting the tendon. Patient would also benefit from calming down the flare with the use of anti- inflammatories. Patientis to take the anti-inflammatories daily with food. Patient started aggressive stretching regimen. Patient understands that this will lessen the pull needed from the posterior group. Will re-evaluate at next visit. If no improvement, will consider physical therapy versus bracing. Patient being treated for left foot pain Conservative treatment options discussed and the decision made to try an corticosteroid injection today. Risks and benefits explained to patient. Injection to the area was performed after written consent was obtained. Risks and benefits discussed in detail with patient and include but are not limited to risk of infection risk of recurrence risk of steroid flare. Injection given to the left heel of half cc 1% lidocaine half cc of Kenalog 40 Patient understands that the first three days status post injection, the site may feel sore. Patient is to ice and elevate during this time. Patient understands that the injection is to decrease inflammation and reduce flares. Patient understands that it is variable how long the injection lasts. All questions answered. Injection tendon or ligament Indications: pain Details: 25 G needle Medications: 0.5 mL lidocaine (PF) 1 %; 40 mg triamcinolone acetonide 40 mg/mL Informed Consent: Laterality: Left Melo Cartagena DPM documented in this encounter Plan of Treatment Upcoming Encounters Date Type Department Care Team (Late st Contact Info) Description 06/14/2025 9:00 AM EDT Office Visit Orthopedic Surgery - [place] [address] [phone] Melo Cartagena DPM [address] [address] documented as of this encounter Procedures Procedure Name Priority Date/Time Associated Diagnosis Comments INJECTION TENDON OR LIGAMENT Routine 06/07/2025 9:00 AM EDT Plantar fascial fibromatosis documented in this encounter Results * Injection tendon or ligament (06/07/2025 9:00 AM EDT) Narrative Melo Cartagena DPM - 06/07/2025 9:00 AM EDT Melo Cartagena DPM 06/07/2025 12:52 PM Injection tendon or ligament Indications: pain Details: 25 G needle Medications: 0.5 mL lidocaine (PF) 1 %; 40 mg triamcinolone acetonide 40 mg/mL Informed Consent: Laterality: Left us Melo Cartagena DPM IN CLINIC/BEDSIDE ORDERABLE S Final Result documented in this encounter Visit Diagnoses Diagnosis Pain in both feet- Primary Pes planus of both feet Equinus contracture of left ankle Plantar fascial fibromatosis documented in this encounter Administered Medications Inactive Administered Medications - up to 3 most recent administrations Medication Order MAR Action Action Date Dose Rate Site lidocaine (PF) (XYLOCAINE-MPF) 1 % injection 0.5 mL 0.5 mL, injection, Once PRN Procedure, Starting on Gege 06/07/25 at 0900, For 1 doseIndications:Plantar fascial fibromatosis Given 06/07/2025 9:00 AM EDT 0.5 mL triamcinolone acetonide (KENALOG-40) 40 mg/mL injection 40 mg 40 mg, intra-articular, Once PRN Procedure, Starting on Gege 06/07/25 at 0900, For 1 doseIndications:Plantar fascial fibromatosis Given 06/07/2025 9:00 AM EDT 40 mg documented in this encounter Orders Outpatient Referral Count Last Ordered Date Fir st Ordered Date AMB REFERRAL TO PODIATRY 1 06/07/2025 documented in this encounter Care Teams Managed Care Manager Relationship Specialty Start Date End Date Zheng Fernandez PA [facility] [place] [address] PCP - General Physician Script Editor 02/16/25 documented as of this encounter
--- OUTSIDE RECORDS SUMMARY | 2025-06-11 06:40 | XMS_ITS ---
Author Organization [facility] Address [address] [place] [phone] Care Team Providers Care Phosphorus Processing Supervisor Name Role Phone Zheng Fernandez Primary Care Provider Unavailab Clovis Medina Jr Unavailable [phone] Allergies No Known Allergies REASON FOR VISIT Patient presents today for a colon screening Immunizations Vaccine Route Administration Date Status Comme nts Influenza Unknown 06/11/2025 Refused Vital Signs Temperature 98.6 degrees Fahrenheit 06/11/20 25 Blood pressure systolic 001 mm Hg 06/11/20 25 Blood pressure diastolic 01 mm Hg 025 Height 71 in 06/11/2025 Weight 274.2 lbs 06/11/2025 BMI 38.24 kg/m2 06/11/2025 Encounters Encounter Location Date Provider Diagnosis [facility] [address] [place] [phone] 06/11/2025 Clovis Grant Jr Encounter for screening colonoscopy Z12.11 Assessments Encounter Date Diagnosis (ICD Code) Assessment Notes Treatment Notes Treatment Clinical Notes Section Notes 06/11/2025 Encounter for screening colonoscopy (ICD-10 - Z12.11) Plan Of Treatment Future Test Test Name Order Date COLONOSCOPY 06/11/2025 Next Appt Details Provider Name:Clovis gunderson Jr, 06/26/2025 12:10:00 PM, [address] [place] [address] , [place], [place], [phone], Progress Notes * SNELL, DIONNADOB:1965 (59 yo M)Acc No.[id number]:06/11/2025 Progress Notes Patient: DIONNA ROJO Provider: Mark Grant MD :1965 A ge:59 Y S ex:Male Date:06/11/2025 Address:[address] [place], [place] [phone] Pcp:Zheng Fernandez Subjective: * Chief Complaints: * 1 . Patient presents today for a colon screening. * Medical History: D enies [place],DM,CVA,Lung disease,renal disease. * Surgical History: t otal knee left 2016, total knee right 2018. * Family History: F ather: . M other: alive, diagnosed with Diabetes. No family history of colon cancer or liver cancer. * Social History: T obacco Use: T obacco Use/Smoking A re you a: nonsmoker. D rugs/Alcohol: A lcohol Screen P oints: 4, Interpretation: Positive. M iscellaneous: M arital status: . Occupation: construction project engineer. * Medications: D iscontinued MoviPrep 100 GM Solution Reconstituted as directed before colonoscopy Orally , Medication List reviewed and reconciled with the patient * Allergies: N .K.D.A. Objective: * Vitals: W t:274.2lbs, Ht: 71 in, BMI:38.24Index, BP:001/01mm Hg, Temp:98.6, Wt-k.38. Assessment: * Assessment: 1. E ncounter for screening colonoscopy - Z12.11 (Primary) Plan: * Treatment: * Immunizations: Influenza (Not administered - Refused: Patient decision) * Preventive Medicine: Counseling: C are goal follow-up plan: A hang Normal BMI Follow-up D ietary management education, guidance, and counseling, B [place] management provided Y es. * * The named appointment provid er may or may not be the originator of this progress note, and it is not deemed complete until electronically signed by the appointment provider. Sign off status: Pending * Provider: Mark Grant MD Date: 06/11/2025 Generated for Hung corral/Villa/Brianitting on: 06/12/2025 01:18 PM EDT
--- OUTSIDE RECORDS SUMMARY | 2025-06-12 13:19 | XMS_ITS | Patient Health Record ---
Author Organization [facility] Address [address] [place] [address] Care Team Providers Care Rip Sawyer Name Role Phone Zheng Fernandez Primary Care Provider Cam Medina Jr, Clovis Barton Allergies No Known Allergies Reason For Referral No Information Immunizations Vaccine Route Administration Date Status Comme nts Influenza Unknown 06/11/2025 Refused Problems Problem Type SNOMED Code ICD Code Onset Dates Problem Status W/U Status Risk Notes Problem 836785870 Colon cancer screening (V76.51) Active confirmed Vital Signs Temperature 98.6 degrees Fahrenheit 06/11/2025 Blood pressure diastolic 01 mm Hg 06/11/2025 Height 71 in 06/11/2025 Blood pressure systolic 001 mm Hg 06/11/2025 Weight 274.2 lbs 06/11/2025 BMI 38.24 kg/m2 06/11/2025 Encounters Encounter Location Date Provider Diagnosis [facility] [address] [place] [phone] 06/11/2025 Clovis Grant Jr Encounter for screening colonoscopy Z12.11 Assessments Encounter Date Diagnosis (ICD Code) Assessment Notes Treatment Notes Treatment Clinical Notes Section Notes 06/11/2025 Encounter for screening colonoscopy (ICD-10 - Z12.11) Plan Of Treatment Future Test Test Name Order Date COLONOSCOPY 12/20/2014 COLONOSCOPY 06/11/2025 Next Appt Details Provider Name:Clovis gunderson Jr, 06/26/2025 12:10:00 PM, [address] [place] [address] , [place], [place], [phone], Insurance Providers Payer Name Payer Address Payer Phone Subscriber Number Group Number Insured Name Patient Relationship to Insured Coverage Start Date Coverage End Date [facility] [address] [facility] [place] [phone] [id number] DIONNA SNELL Self - patient is the insured Medical (General) History Medical History History ICD Code Denies [place],DM,CVA,Lung disease,renal dise ase Surgical History Surgery Date(Month/Year) total knee right 2019 total knee left 2016
--- OUTSIDE RECORDS SUMMARY | 2025-06-12 13:19 | XMS_ITS | Clinical Summary ---
Author Organization [address] Address [address] [place] [phone] Phone Care Team Providers Care Concrete Technician Name Role Phone Zheng Fernandez Primary Care Provider Allergies No known active allergies Medications Hospital, Clinic, or Other Facility Administered Medication Ordered Dose Route Frequency Start Date End Date Status lidocaine (PF) (XYLOCAINE-MPF) 1 % injection 0.5 mLIndications:Planta r fascial fibromatosis .5 mL inj Once PRN Procedure 06/07/2025 06/07/2025 Ended triamcinolone acetonide (KENALOG-40) 40 mg/mL injection 40 mgIndications:Planta r fascial fibromatosis 40 mg IAtc Once PRN Procedure 06/07/2025 06/07/2025 Ended Encounters Date Type Department Care Team Description 06/07/2025 9:00 AM EDT Consult Orthopedic Surgery [facility] [address] [place] [phone] Melo Cartagena DPM Pain in both feet (Primary Dx); Pes planus of both feet; Equinus contracture of left ankle; Plantar fascial fibromatosis from Last 3 Months Social History Tobacco Use Types Packs/Day Years Used Date Smoking Tobacco: Never Assessed Sex and Gender Information Value Date Recorded Sex Assigned at Not on file Legal Sex Male 12:52 PM EDT Gender Identity Not on file Sexual Orientation Not on file Plan of Treatment Upcoming Encounters Date Type Department Care Team ([facility] st Contact Info) Description 06/14/2025 9:00 AM EDT Office Visit Orthopedic Surgery [facility] [address] [phone] Melo Cartagena, DPGaldino [address] [address] Health Maintenance Due Date Last Done Comments Colorectal Cancer Screening: Colonoscopy 1965 Pneumococcal Vaccine: 50+ Years (1 of 1 - PCV) 2013 Zoster Vaccines (1 of 2) 2013 Depression Screening 09/13/2024 HIV Screening 02/16/2025 Hepatitis C Screening 02/16/2025 Social Influencers of Health Screening 02/16/2025 COVID-19 Vaccine (3 - 2024-2 6 season) 2025 01/27/2021, 12/30/2020 Influenza Vaccine (#1) 2025 09/18/2020 Cholesterol Screening [...] 06/07/2025 9:00 AM EDT Plantar fascial fibromatosis LIPID PANEL WITH REFLEX TO DIRECT LDL Routine 02/16/2025 1:06 PM EDT Special screening for malignant neoplasm of prostate Mixed hyperlipidemia from Last 3 Months or Most Recently Relevant to Health Maintenance Results * Injection tendon or ligament (06/07/2025 9:00 AM EDT) Narrative Melo Cartagena DPM - 06/07/2025 9:00 AM EDT Melo Cartagena DPM 06/07/2025 12:52 PM Injection tendon or ligament Indications: pain Details: 25 G needle Medications: 0.5 mL lidocaine (PF) 1 %; 40 mg triamcinolone acetonide 40 mg/mL Informed Consent: Laterality: Left us Melo Cartagena DPM IN CLINIC/BEDSIDE ORDERABLE S Final Result * (ABNORMAL) Lipid panel with reflex to direct LDL (02/16/2025 1:06 PM EDT) Cholesterol 209(H) 0 - 200 mg/dL LAB CHEMISTRY METHOD 02/16/2025 5:22 PM [facility] Triglycerides 91 0 - 150 mg/dL LAB CHEMISTRY METHOD 02/16/2025 5:22 PM [facility] HDL 57 >=40 mg/dL LAB CHEMISTRY METHOD 02/16/2025 5:22 PM [facility] LDL Calculated 134(H) 0 - 100 mg/dL LAB CHEMISTRY METHOD 02/16/2025 5:22 PM [facility] VLDL Cholesterol Wander 18.2 mg/dL LAB CHEMISTRY METHOD 02/16/2025 5:22 PM [facility] Non HDL Chol. (LDL+VLDL) 152(H) <145 mg/dL LAB CHEMISTRY METHOD 02/16/2025 5:22 PM [facility] Chol/HDL Ratio 3.7 0.0 - 4.4 LAB CHEMISTRY METHOD 02/16/2025 5:22 PM [facility] Blood Venous blood specimen / Unknown Venipuncture / Unknown 02/16/2025 1:06 PM EDT 02/16/2025 1:06 PM EDT us Zheng STANLEY LAB BLOOD ORDERABLES Final Result [facility] [address] [place] [address], [place] [phone] from Last 3 Months or Most Recently Relevant to Health Maintenance Insurance [facility] Care Teams Concrete Technician Relationship Specialty Start Date End Date Zheng Fernandez PA [address] [place] [phone] PCP - General Physician Record Press Operator 02/16/25
[2025-06-21 14:38] VITALS: BMI 38.2
--- NOTE | 2025-06-22 08:34 | P.CONAN_ITS ---
Documented by User: Dee Dee Heart NP 06/22/25 08:34 HPI - Anesthesia Eval Consult details Narrative: 59yo M for Colonoscopy PMFSH Active Problems Active Problems: All Active Problems BPH (benign prostatic hyperplasia) (Acute) Elevated fasting blood sugar (Acute) Hematuria (Acute) Screening for colorectal cancer (Acute) Psoriasis (Acute) Lumbar muscle pain (Acute) Class 2 obesity (Acute) Plantar fasciitis of left foot (Acute) Screening PSA (prostate specific antigen) (Acute) Family history of kidney cancer (Acute) Spermatocele (Acute) Left foot pain (Acute) Closed right fibular fracture (Acute) Closed right ankle fracture (Acute) Family history of hemochromatosis (Acute) Scrotum swelling (Acute) Hydrocele (Acute) Family history of renal cell carcinoma (Acute) Right flank pain (Acute) HLD (hyperlipidemia) (Acute) Pulmonary infiltrate (Acute) COVID-19 (Acute) Obese (Acute) Screening for hypothyroidism (Acute) Screening for hypercholesterolemia (Acute) Screening for diabetes mellitus (Acute) Annual physical exam (Acute) Past Medical History Medical History Psoriasis BPH (benign prostatic hyperplasia) Obese HLD (hyperlipidemia) Family History Family History Father Lung cancer Smoker Mother Diabetes Lung cancer Brother In good health Renal carcinoma Hemochromatosis Sister In good health Hemochromatosis Son In good health Brother Heart problem Brother Cancer Family history of problems with anesthesia: No Surgical History Surgical History History of total left knee replacement History of total right knee replacement Status post LASIK surgery History of vasectomy Status post excision of lipoma History of Problems with Anesthesia: No Social History Social History Housing: House Are you a primary care team coordinator scheduler to a significant other at home: No Do you presently have visiting nurse or other home services: No Alcohol intake: current Alcohol intake frequency: a few times a month Alcohol type: beer Patient Tobacco Use Status: Never used Tobacco e-Cigarette/Vaping Use: Never Used Second Hand Smoke Exposure: No Have you been hit, kicked, punched, or otherwise hurt by someone within the past year? 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 Cognitive needs: No Hearing needs: No Vision needs: No Meds Allergies Allergy/AdvReac Type Severity Reaction Status Date / Time No Known Allergies (No Known Allergy Verified 03/05/25 14:07 Allergies*) Exam Height,Weight and Vital Signs: Height 5 ft 11 in Weight 124.375 kg Assessment and Plan Assessment Anesthesia Assessment: Chart Reviewed Final Anesthetic Review Family History of Problems with Anesthesia: No History of Problems with Anesthesia: No Documented by User: Keri Arcos MD 06/26/25 11:05 [facility] Past Medical History Medical History Psoriasis BPH (benign prostatic hyperplasia) Obese HLD (hyperlipidemia) Family History Family History Father Lung cancer Smoker Mother Diabetes Lung cancer Brother In good health Renal carcinoma Hemochromatosis Sister In good health Hemochromatosis Son In good health Brother Heart problem Brother Cancer Surgical History Surgical History History of total left knee replacement History of total right knee replacement Status post LASIK surgery History of vasectomy Status post excision of lipoma Social History Social History Housing: House Are you a primary care team coordinator scheduler to a significant other at home: No Do you presently have visiting nurse or other home services: No Alcohol intake: current Alcohol intake frequency: a few times a month Alcohol type: beer Patient Tobacco Use Status: Never used Tobacco e-Cigarette/Vaping Use: Never Used Second Hand Smoke Exposure: No Have you been hit, kicked, punched, or otherwise hurt by someone within the past year? 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 Cognitive needs: No Hearing needs: No Vision needs: No Meds Allergies Allergy/AdvReac Type Severity Reaction Status Date / Time No Known Allergies (No Known Allergy Verified 03/05/25 14:07 Allergies*) Exam Airway Mallampati Class: II TM Dist: >3cm Neck ROM: Full Heart: rrr Lungs: cta Assessment and Plan Assessment Anesthesia Assessment: Anesthesia Plan Discussed Final Anesthetic Review NPO: Yes ASA Class: II Final Preanesthetic Review: No Changes in Pt Med Stat, Meds/Allgs Chart Reviewed, Consent Obtained/Reviewed and Anes Risks/Benef Reviewed Patient Risk: Low Procedure Risk: Low Anesthetic Plan Anesthetic Plan: MAC: Disposition: Standard PACU
[2025-06-26 10:59] VITALS: BMI 17.2
[2025-06-26] MEDS: Lactated Ringers 1,000 ML 100 ML IVCONT (11:04)
[2025-06-26 11:15] VITALS: BP 125/84; PULSE 76; RESP 18; TEMP 36.6; O2SAT 96
--- NOTE | 2025-06-26 11:32 | MHC.SHP ---
Pre-Procedural Eval Section A - 24 Hr Update-Section A only Date of Service: 06/26/25 The patient is an INPATIENT: No Changes since office visit: No Cold of Flu in the past 2 weeks, No New Medical Problems, No Changes in Medication and No Patient answered all questions The patient has been examined within 24 hours of the surgical procedure. The History & Physical has been completed within 30 days and I have reviewed it.: Yes Section B - Complete if H&P > 30 days Chief Complaint: screening Allergies: Allergies Allergy/AdvReac Type Severity Reaction Status Date / Time No Known Allergies (No Known Allergy Verified 03/05/25 14:07 Allergies*) Plan I have reviewed the history and physical and performed a pertinent physical examination on my patient. No changes have occurred unless specified. Time Spent With Patient Time: Total time managing care of this patient today ____ minutes.
[2025-06-26 11:45] VITALS: BMI 37.4
[2025-06-26 12:12] VITALS: BP 106/67; PULSE 81; RESP 16; TEMP 36.4; O2SAT 95
[2025-06-26 12:27] VITALS: BP 118/76; PULSE 74; RESP 16; TEMP 36.4; O2SAT 95
--- NOTE | 2025-06-26 14:33 | OP_ITS ---
DATE OF SERVICE: 06/26/2025 SURGEON: Clovis Grant MD INDICATIONS: Colon cancer screening. PREOPERATIVE DIAGNOSIS: POSTOPERATIVE DIAGNOSIS: PROCEDURE PERFORMED: Colonoscopy to the terminal ileum with snare polypectomy. ESTIMATED BLOOD LOSS: COMPLICATIONS: ANESTHESIA: Monitored anesthesia care. ASSISTANTS: SPECIMENS: DESCRIPTION OF PROCEDURE: A history and physical was performed. The risks and benefits of the procedure were explained to the patient. Informed consent was obtained. The patient was placed in the left lateral decubitus position. A digital rectal exam was performed and was found to be normal. The Olympus pediatric video colonoscope was introduced into the rectum and advanced to the cecum. The cecum was identified by transillumination, palpation, and identification of ileocecal valve. Examination was performed. The scope was removed. He tolerated the procedure well and was returned to the recovery area in stable condition. FINDINGS: The terminal ileum was examined and appeared normal. The visualized colonic mucosa was normal. The quality of the prep was good. At 60 cm were 2 less than 5 mm sessile polyps, which were removed with a cold snare and recovered via suction. In the rectum was a 7 mm polyp, which was removed with a snare and recovered via suction. No other polyps were identified. Retroflexed examination showed moderate-sized internal hemorrhoids. IMPRESSION: Colon polyps. RECOMMENDATION: Follow up the biopsy results. MD JOHNNY Mcpherson/MODL / [id number] MTDD
== END 2025-06-26 13:05 | disposition home or self-care (01) ==
PROVIDERS: PCP Physician Assistant; Visit Provider Internal Medicine Gastroenterology
PROC: 0DJD8ZZ Inspection of Lower Intestinal Tract, Via Natural or Artificial Opening Endoscopic (ICD-10-PCS; CPT 45378; principal; 2025-06-26 12:10)
DX: Z12.11 Encounter for screening for malignant neoplasm of colon (principal); D12.4 Benign neoplasm of descending colon; D12.8 Benign neoplasm of rectum; K64.8 Other hemorrhoids; N40.0 Benign prostatic hyperplasia without lower urinary tract symptoms; Z96.653 Presence of artificial knee joint, bilateral
CPT/HCPCS: 45385; 88305; J2704